=== PATIENT | female | born 1940 | race Caucasian/White ===

== ENCOUNTER 2019-09-21 10:10 | Inpatient (IN) | payer OTHER ==
[2019-09-21] MEDS ORDERED: SODIUM CHLORIDE 500 ML IV STA (12:05)
[2019-09-21 12:13] LABS: BASO % 0.3 % (0-2.0); HEMATOCRIT 24.4 % (32.4-45.2); LYMPH % 12.2 % (8-40); MCH 34.5 pg (25.7-33.7); MEAN CELL VOLUME 104.5 fl (80-96); MEAN PLT VOLUME 7.5 fl (7.5-11.1); MONO % 7.3 % (3.8-10.2); NEUT % 78.2 % (42.8-82.8); PLATELET COUNT 300 K/MM3 (134-434); RBC 2.34 M/mm3 (3.60-5.2); RDW 16.7 % (11.6-15.6); WHITE BLOOD COUNT 9.8 K/mm3 (4.0-10.0)
[2019-09-21 12:21] LABS: INR 1.05 (0.83-1.09); PROTHROMBIN TIME (PATIENT) 12.4 SEC (9.7-13.0)
[2019-09-21 12:45] LABS: ALBUMIN 2.7 g/dl (3.4-5.0); BILIRUBIN,TOTAL 0.2 mg/dL (0.2-1); CALCIUM 8.9 mg/dL (8.5-10.1); CREATININE 2.2 mg/dL (0.55-1.3); POTASSIUM 3.8 mmol/L (3.5-5.1); TOT PROT 5.6 g/dl (6.4-8.2)
[2019-09-21] MEDS ORDERED: PIPERACILLIN/TAZOB 2.25 GM 2.25 GM in DEXTROSE 5%-WATER - 50 ML IVPB ONE (15:18)
--- NOTE | 2019-09-21 15:26 | PDOC ---
Documentation entered by Marcy Ndiaye SCRIBE, acting as scribe for Jarad Richey MD. Jarad Richey MD: This documentation has been prepared by the Senthil culver Sammi, SCRIBE, under my direction and personally reviewed by me in its entirety. I confirm that the documentation accurately reflects all work, treatment, procedures, and medical decision making performed by me. History of Present Illness - General Chief Complaint: Weakness Stated Complaint: WEAKNESS Time Seen by Provider: 09/21/19 10:34 - History of Present Illness Initial Comments: 09/21/19 11:07 The patient is a 78 year old female with hx/o ckd, anemia, htn, who presents to the emergency department for evaluation of 2 days of increased weakness, LLQ pain, sharp, intermitent, waxing and waining in severity, with mucoid stool. The patient is a poor historian. 09/21/19 15:19 Past History - Past Medical History Allergies/Adverse Reactions: Allergies Allergy/AdvReac Type Severity Reaction Status Date / Time No Known Allergies Allergy Verified 09/21/19 13:04 Home Medications: Ambulatory Orders Allopurinol [Zyloprim -] 100 mg PO DAILY 09/21/19 Aspirin [ASA -] 81 mg PO DAILY 09/21/19 Divalproex [Depakote -] 250 mg PO BID 09/21/19 Divalproex [Depakote -] 500 mg PO HS 09/21/19 Furosemide [Lasix] 20 mg PO DAILY 09/21/19 Levothyroxine [Synthroid -] 50 mcg PO DAILY 09/21/19 Quinapril HCl 10 mg PO HS 09/21/19 Repaglinide 2 mg PO TID 09/21/19 Rosuvastatin [Crestor -] 10 mg PO DAILY 09/21/19 Anemia: Yes COPD: No GI Disorders: Yes (diverticulosis) Disorders: Yes (urinary incontinence) Seizures: Yes Thyroid Disease: Yes (hypothyroid) - Immunization History Immunization Up to Date: Yes - Psycho Social/Smoking Cessation Hx Smoking History: Unknown if ever smoked Have you smoked in the past 12 months: No Information on smoking cessation initiated: No Hx Alcohol Use: No Drug/Substance Use Hx: No Review of Systems - Review of Systems Comments:: 09/21/19 11:09 CONSTITUTIONAL: +increased weakness. No fever, no chills. EYES: No visual changes ENT: No ear pain, no sore throat CARDIOVASCULAR: No chest pain, no palpitations RESPIRATORY: No cough, no SOB GI: +LLQ pain, +mucous in her stool. no nausea, no vomiting, no constipation, no diarrhea GENITOURINARY: No dysuria, no frequency, no hematuria MUSKULOSKELETAL: No backpain, no joint pain, no myalgias SKIN: No rash NEURO: No headache *Physical Exam - Vital Signs Last Vital Signs Temp Pulse Resp BP Pulse Ox 98.0 F 82 16 102/70 99 09/21/19 10:40 09/21/19 10:40 09/21/19 10:40 09/21/19 10:40 09/21/19 10:40 - Physical Exam Comments: 09/21/19 14:46 CONSTITUTIONAL: +pale appearing. in no apparent distress ENMT: External appears normal; normal oropharynx NECK: Supple; non-tender; no cervical lymphadenopathy CARD: Normal S1, S2; no murmurs, rubs, or gallops RESP: Normal chest excursion with respiration; breath sounds clear and equal bilaterally; no wheezes, rhonchi, or rales ABD: Soft, non-distended; non-tender; no palpable organomegaly, no palpable hernias EXT: Normal ROM in all four extremities; non-tender to palpation; distal pulses intact SKIN: Warm, dry, no rash NEURO: No focal neurological deficiencies. ED Treatment Course - LABORATORY CBC & Chemistry Diagram: 09/21/19 12:04 09/21/19 12:04 - ADDITIONAL ORDERS Additional order review: Laboratory Results 09/21/19 09/21/19 09/21/19 12:04 12:04 12:04 PT with INR 12.40 INR 1.05 Sodium 138 Potassium 3.8 Chloride 105 Carbon Dioxide 24 Anion Gap 9 BUN 56.0 H Creatinine 2.2 H Est GFR (CKD-EPI)AfAm 24.43 Est GFR (CKD-EPI)NonAf 21.08 Random Glucose 159 H Calcium 8.9 Total Bilirubin 0.2 AST 14 L ALT 11 L Alkaline Phosphatase 46 Total Protein 5.6 L Albumin 2.7 L Lipase Blood Type Cancelled Antibody Screen Cancelled 09/21/19 12:04 PT with INR INR Sodium Potassium Chloride Carbon Dioxide Anion Gap BUN Creatinine Est GFR (CKD-EPI)AfAm Est GFR (CKD-EPI)NonAf Random Glucose Calcium Total Bilirubin AST ALT Alkaline Phosphatase Total Protein Albumin Lipase 53 L Blood Type Antibody Screen 09/21/19 12:04 RBC 2.34 L MCV 104.5 H MCHC 33.0 RDW 16.7 H MPV 7.5 Neutrophils % 78.2 Lymphocytes % 12.2 Monocytes % 7.3 Eosinophils % 2.0 Basophils % 0.3 - RADIOLOGY Radiology Studies Ordered: Category Date Time Status ABDOMEN & PELVIS CT W/O CONTR [CT] Stat CT Scan 09/21/19 12:05 Completed - Medications Given in the ED: ED Medications Discontinued Medications Generic Name Dose Route Start Last Admin Trade Name Freq PRN Reason Stop Dose Admin Sodium Chloride 500 mls @ 500 mls/hr 09/21/19 12:05 09/21/19 12:11 Normal Saline - IV 09/21/19 13:04 500 mls/hr ASDIR STA Administration Medical Decision Making - Medical Decision Making 09/21/19 15:24 Patient is a 78-year-old female with history of CKD, hypertension, anemia who presents with intermittent left-sided abdominal pain, waxing and waning mental status associated with episodes of pain and mucoid stools. In the ER, patient is awake and alert, nontoxic-appearing, refusing Berry catheter and uncooperative with physical exam. Abdominal evaluation reveals mild to minimal left-sided abdominal tenderness on deep palpation only without guarding or rebound. CBC reveals moderate anemia with hematocrit of 24. Patient's family members report that on July [id number] patient's hematocrit was 30.3. CT of abdomen pelvis reveals findings consistent with mild diverticulitis without evidence of perforation. Will treat with IV Zosyn. Will admit. As per family members, patient has refused colonoscopy on numerous occasions. At this point, there is no indication for packed RBC transfusion. Will obtain type and screen. Discharge - Discharge Information Problems reviewed: Yes Clinical Impression/Diagnosis: Acute diverticulitis Anemia Qualifiers: Anemia type: unspecified type Qualified Code(s): D64.9 - Anemia, unspecified CKD (chronic kidney disease) Qualifiers: Chronic kidney disease stage: stage 4 (severe) Qualified Code(s): N18.4 - Chronic kidney disease, stage 4 (severe) - Admission Yes - Follow up/Referral Referrals: ON STAFF,NOT [Primary Care Provider] - - Patient Discharge Instructions - Post Discharge Activity
[2019-09-21] MEDS ORDERED: PIPERACILLIN/TAZOB 2.25 GM 2.25 GM/50 ML BAG IVPB ONE (15:36)
--- NOTE | 2019-09-21 18:40 | HP ---
Admitting History and Physical - Primary Care Physician PCP: Deborah Cespedes - Admission History of Present Illness: 78 year old female with hx/o ckd, anemia, htn, who presents to the emergency department for evaluation of 2 days of increased weakness, LLQ pain, sharp, intermitent, waxing and waining in severity, with mucoid stool. The patient is a poor historian. - Past Medical History Cardiovascular: Yes: HTN Renal/: Yes: Renal Failure - Smoking History Smoking history: Unknown if ever smoked Have you smoked in the past 12 months: No - Alcohol/Substance Use Hx Alcohol Use: No Home Medications - Allergies Allergies/Adverse Reactions: Allergies Allergy/AdvReac Type Severity Reaction Status Date / Time No Known Allergies Allergy Verified 09/21/19 13:04 - Home Medications Home Medications: Ambulatory Orders Allopurinol [Zyloprim -] 100 mg PO DAILY 09/21/19 Aspirin [ASA -] 81 mg PO DAILY 09/21/19 Divalproex [Depakote -] 250 mg PO BID 09/21/19 Divalproex [Depakote -] 500 mg PO HS 09/21/19 Furosemide [Lasix] 20 mg PO DAILY 09/21/19 Levothyroxine [Synthroid -] 50 mcg PO DAILY 09/21/19 Quinapril HCl 10 mg PO HS 09/21/19 Repaglinide 2 mg PO TID 09/21/19 Rosuvastatin [Crestor -] 10 mg PO DAILY 09/21/19 Physical Examination Vital Signs: Vital Signs Temperature 98.1 F 09/21/19 18:00 Pulse Rate 76 09/21/19 18:00 Respiratory Rate 16 09/21/19 18:00 Blood Pressure 112/44 L 09/21/19 18:00 O2 Sat by Pulse Oximetry (%) 100 09/21/19 18:00 Constitutional: Yes: No Distress HENT: Yes: Atraumatic Neck: Yes: Supple Cardiovascular: Yes: Regular Rate and Rhythm Respiratory: Yes: CTA Bilaterally Gastrointestinal: Yes: Normal Bowel Sounds Extremities: Yes: WNL Neurological: Yes: Alert, Oriented Labs: CBC, BMP 09/21/19 12:04 09/21/19 12:04 Problem List - Problems (1) Acute diverticulitis Assessment/Plan: npo , ivf iv protonix Code(s): K57.92 - DVTRCLI OF INTEST, PART UNSP, W/O PERF OR ABSCESS W/O BLEED (2) Anemia Assessment/Plan: fu labs Code(s): D64.9 - ANEMIA, UNSPECIFIED Qualifiers: Anemia type: unspecified type Qualified Code(s): D64.9 - Anemia, unspecified (3) CKD (chronic kidney disease) Code(s): N18.9 - CHRONIC KIDNEY DISEASE, UNSPECIFIED Qualifiers: Chronic kidney disease stage: stage 4 (severe) Qualified Code(s): N18.4 - Chronic kidney disease, stage 4 (severe) Assessment/Plan Laboratory Tests 09/21/19 09/21/19 09/21/19 12:04 12:04 12:04 WBC 9.8 RBC 2.34 L Hgb 8.0 L Hct 24.4 L MCV 104.5 H MCH 34.5 H MCHC 33.0 RDW 16.7 H Plt Count 300 MPV 7.5 Absolute Neuts (auto) 7.6 Neutrophils % 78.2 Lymphocytes % 12.2 Monocytes % 7.3 Eosinophils % 2.0 Basophils % 0.3 Nucleated RBC % 0 PT with INR INR Sodium 138 Potassium 3.8 Chloride 105 Carbon Dioxide 24 Anion Gap 9 BUN 56.0 H Creatinine 2.2 H Est GFR (CKD-EPI)AfAm 24.43 Est GFR (CKD-EPI)NonAf 21.08 Random Glucose 159 H Calcium 8.9 Total Bilirubin 0.2 AST 14 L ALT 11 L Alkaline Phosphatase 46 Total Protein 5.6 L Albumin 2.7 L Lipase 53 L Blood Type Antibody Screen 09/21/19 09/21/19 09/21/19 12:04 12:04 15:45 WBC RBC Hgb Hct MCV MCH MCHC RDW Plt Count MPV Absolute Neuts (auto) Neutrophils % Lymphocytes % Monocytes % Eosinophils % Basophils % Nucleated RBC % PT with INR 12.40 INR 1.05 Sodium Potassium Chloride Carbon Dioxide Anion Gap BUN Creatinine Est GFR (CKD-EPI)AfAm Est GFR (CKD-EPI)NonAf Random Glucose Calcium Total Bilirubin AST ALT Alkaline Phosphatase Total Protein Albumin Lipase Blood Type Cancelled A NEGATIVE Antibody Screen Cancelled Negative Active Medications Generic Name Dose Route Start Last Admin Trade Name Freq PRN Reason Stop Dose Admin Acetaminophen 650 mg 09/26/19 08:31 09/26/19 08:48 Tylenol - PO 650 mg Q6H PRN Administration HEADACHE Al Hydroxide/Mg Hydroxide 30 ml 09/24/19 19:06 09/24/19 21:40 Mylanta Oral Suspension - PO 30 ml Q6H PRN Administration DYSPEPSIA Divalproex Sodium 250 mg 09/21/19 22:00 09/26/19 09:25 Depakote - PO 250 mg BID KENJI Administration Heparin Sodium (Porcine) 5,000 unit 09/21/19 22:00 09/26/19 09:25 Heparin - SQ 5,000 unit BID KENJI Administration Sodium Chloride 1,000 mls @ 75 mls/hr 09/21/19 18:45 09/26/19 17:57 Normal Saline - IV Not Given ASDIR KENJI Piperacillin Sod/Tazobactam 50 mls @ 100 mls/hr 09/22/19 11:15 09/26/19 17:57 Sod 2.25 gm/ Dextrose IVPB 100 mls/hr Q8H-IV KENJI Administration Protocol Levothyroxine Sodium 50 mcg 09/22/19 07:00 09/26/19 06:27 Synthroid - PO 50 mcg DAILY@0700 KENJI Administration
[2019-09-21] MEDS ORDERED: MORPHINE SULFATE 2 MG/ML VIAL IVPUSH PRN (18:43)
[2019-09-21] MEDS: SODIUM CHLORIDE 1,000 ML IV SCH (22:35)
[2019-09-21] MEDS ORDERED: INSULIN SLIDING SCALE (NOVOLOG) 1 VIAL SQ ONE (22:49)
[2019-09-21] MEDS: DIVALPROEX SODIUM 250 MG TABLET E.C. PO SCH (23:15)
[2019-09-21] MEDS: HEPARIN NA (PORCINE) 5,000 UNITS/ML 1ML VIAL SQ SCH (23:16)
[2019-09-22] MEDS ORDERED: PT OWN MED DRAWER 7, Y5N ONE ×2 (02:46→10:26)
[2019-09-22] MEDS: LEVOTHYROXINE NA 50 MCG TABLET (FP) PO SCH (06:35)
[2019-09-22 09:09] LABS: PH,URINE 5.5 (5.0-8.0); URINE APPEARANCE CLEAR; URINE BILIRUBIN NEGATIVE (NEGATIVE); URINE COLOR YELLOW; URINE GLUCOSE (UA) NEGATIVE (NEGATIVE); URINE KETONE NEGATIVE (NEGATIVE); URINE LEUK ESTERASE NEGATIVE (NEGATIVE); URINE NITRITE NEGATIVE (NEGATIVE); URINE PROTEIN NEGATIVE (NEGATIVE); URINE UROBILINOGEN 0.2 mg/dL (0.2-1.0)
[2019-09-22] MEDS: DIVALPROEX SODIUM 250 MG TABLET E.C. PO SCH ×2 (10:34→22:23)
[2019-09-22] MEDS: HEPARIN NA (PORCINE) 5,000 UNITS/ML 1ML VIAL SQ SCH ×2 (10:38→22:23)
--- NOTE | 2019-09-22 11:27 | CON.ID ---
Consult Consult Specialty:: infectious diseases Referred by:: Reason for Consultation:: abd pain,diverticulitis - History of Present Illness Chief Complaint: left lower quadrant abd pain History of Present Illness: 78 year old female with hx/o ckd, anemia, htn, who is admitted for 2 days of increased weakness, LLQ pain, sharp, intermitent, waxing and waining in severity , with mucoid stool. according to the patient she was [facility] and that time she had had a severe attack of the sme kind of pain and it was close to being perforated she was treated with abx and discharged mentions that was around april,but she does not know specifics after that she had been doing well till now. currently patient feels better,was given abx - History Source History Provided By: Patient Limitations to Obtaining History: Poor Historian - Past Medical History Cardio/Vascular: Yes: HTN Renal/: Yes: Renal Failure ...: No - Alcohol/Substance Use Hx Alcohol Use: No - Smoking History Smoking history: Unknown if ever smoked Have you smoked in the past 12 months: No Home Medications - Allergies Allergies/Adverse Reactions: Allergies Allergy/AdvReac Type Severity Reaction Status Date / Time No Known Allergies Allergy Verified 09/21/19 13:04 - Home Medications Home Medications: Ambulatory Orders Allopurinol [Zyloprim -] 100 mg PO DAILY 09/21/19 Aspirin [ASA -] 81 mg PO DAILY 09/21/19 Divalproex [Depakote -] 250 mg PO BID 09/21/19 Divalproex [Depakote -] 500 mg PO HS 09/21/19 Furosemide [Lasix] 20 mg PO DAILY 09/21/19 Levothyroxine [Synthroid -] 50 mcg PO DAILY 09/21/19 Quinapril HCl 10 mg PO HS 09/21/19 Repaglinide 2 mg PO TID 09/21/19 Rosuvastatin [Crestor -] 10 mg PO DAILY 09/21/19 Review of Systems - Review of Systems Constitutional: reports: No Symptoms Eyes: reports: No Symptoms HENT: reports: No Symptoms Neck: reports: No Symptoms Cardiovascular: reports: No Symptoms Respiratory: reports: No Symptoms Gastrointestinal: reports: Abdominal Pain Genitourinary: reports: No Symptoms Musculoskeletal: reports: No Symptoms Integumentary: reports: No Symptoms Neurological: reports: No Symptoms Endocrine: reports: No Symptoms Hematology/Lymphatic: reports: No Symptoms Psychiatric: reports: No Symptoms Physical Exam Vital Signs: Vital Signs Temperature 98.2 F 09/22/19 06:00 Pulse Rate 73 09/22/19 06:00 Respiratory Rate 18 09/22/19 06:00 Blood Pressure 99/56 L 09/22/19 06:00 O2 Sat by Pulse Oximetry (%) 99 09/21/19 21:00 Constitutional: Yes: Well Nourished, Calm, Mild Distress Eyes: Yes: Conjunctiva Clear HENT: Yes: Atraumatic, Normocephalic Neck: Yes: Supple, Trachea Midline Cardiovascular: Yes: Regular Rate and Rhythm Respiratory: Yes: Regular, CTA Bilaterally Gastrointestinal: Yes: Soft, Hypoactive Bowel Sounds, Tenderness (left lower quadrant) Musculoskeletal: Yes: WNL Extremities: Yes: WNL Neurological: Yes: Alert, Oriented Psychiatric: Yes: Alert, Oriented Labs: CBC, BMP 09/21/19 12:04 09/21/19 12:04 Imaging - Results Chest X-ray: Report Reviewed, Image Reviewed Cat Scan: Report Reviewed, Image Reviewed Assessment/Plan patient with multiple medical problems coming with attack of diverticulitis will continue zosyn on the patient close watch will see how patient does tomorrow rest as per the team
[2019-09-22] MEDS ORDERED: PIPERACILLIN/TAZOBACTAM 2.25 GM VIAL IVPB ONE ×2 (12:09→16:57)
[2019-09-22] MEDS ORDERED: DEXTROSE 5%-WATER - 50 ML IVPB ONE ×2 (12:10→16:58)
[2019-09-22] MEDS: PIPERACILLIN/TAZOB 2.25 GM 2.25 GM in DEXTROSE 5%-WATER - 50 ML IVPB SCH ×2 (12:16→17:40)
[2019-09-22] MEDS: SODIUM CHLORIDE 1,000 ML IV SCH (12:16)
--- NOTE | 2019-09-22 15:56 | CON.GI ---
Consult Consult Specialty:: GI Referred by:: Hospitalist Service Reason for Consultation:: Abdominal pain - History of Present Illness Chief Complaint: Abdominal pain History of Present Illness: 78F [address] [facility] ER for evaluation of abdominal pain. The patient is a poor historian and quite forgetful. She denies nausea, vomiting, change in bowel habits. CT scan revealed changes c/w sigmoid diverticulitis. She describes a simiar episode in 05/18 when she was at "[facility]". She does not recall ever having had a colonoscopy. There is no family history of colorectal cancer or other GI malignancy. Noted to have a macrocytic anemia. Denies known history of liver disease. - History Source History Provided By: Patient, Medical Record Limitations to Obtaining History: Poor Historian - Past Medical History Cardio/Vascular: Yes: HTN Renal/: Yes: Renal Failure ...: No Endocrine: Yes: Diabetes Mellitus (DM II) - Past Surgical History Past Surgical History: Yes: Hysterectomy (RACHELE/BSO) - Alcohol/Substance Use Hx Alcohol Use: No History of Substance Use: reports: None - Smoking History Smoking history: Never smoked Have you smoked in the past 12 months: No - Social History ADL: Family Assistance Place of : [facility] History of Recent Travel: No Home Medications - Allergies Allergies/Adverse Reactions: Allergies Allergy/AdvReac Type Severity Reaction Status Date / Time No Known Allergies Allergy Verified 09/21/19 13:04 - Home Medications Home Medications: Ambulatory Orders Allopurinol [Zyloprim -] 100 mg PO DAILY 09/21/19 Aspirin [ASA -] 81 mg PO DAILY 09/21/19 Divalproex [Depakote -] 250 mg PO BID 09/21/19 Divalproex [Depakote -] 500 mg PO HS 09/21/19 Furosemide [Lasix] 20 mg PO DAILY 09/21/19 Levothyroxine [Synthroid -] 50 mcg PO DAILY 09/21/19 Quinapril HCl 10 mg PO HS 09/21/19 Repaglinide 2 mg PO TID 09/21/19 Rosuvastatin [Crestor -] 10 mg PO DAILY 09/21/19 Review of Systems - Review of Systems Constitutional: denies: Chills Cardiovascular: reports: Edema. denies: Chest Pain Respiratory: denies: Cough Gastrointestinal: reports: Abdominal Pain. denies: Diarrhea, Melena, Rectal Bleeding Physical Exam-GI Vital Signs: Vital Signs Temperature 97.9 F 09/22/19 10:00 Pulse Rate 72 09/22/19 10:00 Respiratory Rate 18 09/22/19 10:00 Blood Pressure 104/56 L 09/22/19 10:00 O2 Sat by Pulse Oximetry (%) 95 09/22/19 09:00 Constitutional: Yes: Calm Eyes: No: Sclera Icterus Cardiovascular: Yes: Regular Rate and Rhythm Respiratory: Yes: Diminished (at bases bilaterally with poor insp. effort) Gastrointestinal Inspection: Yes: Scars (+ midline vertical pelvic surgical scar ) ...Auscultate: Yes: Normoactive Bowel Sounds ...Palpate: Yes: Soft, Tenderness (TTP LLQ) ...Percussion: No: Tympanitic Edema: LLE: 1+, RLE: 1+ Neurological: Yes: Alert Labs: CBC, BMP 09/21/19 12:04 09/21/19 12:04 INR, PTT INR 1.05 (0.83-1.09) 09/21/19 12:04 Problem List - Problems (1) Acute diverticulitis Assessment/Plan: By description of the patient, recurrent episode from 05/18 Advise: NPO IV hydration management per PMD IV Abx per ID AM Labs When optimized clinically, outpatient evaluation for follow-up colonoscopy in 4- 6 weeks Code(s): K57.92 - DVTRCLI OF INTEST, PART UNSP, W/O PERF OR ABSCESS W/O BLEED (2) Anemia Assessment/Plan: Macrocytic anemia: Work-up per PMD Consider heme evaluation Code(s): D64.9 - ANEMIA, UNSPECIFIED Qualifiers: Anemia type: unspecified type Qualified Code(s): D64.9 - Anemia, unspecified
--- NOTE | 2019-09-22 18:10 | PN ---
Progress Note, Physician - Current Medication List Current Medications: Active Medications Divalproex Sodium (Depakote -) 250 mg PO BID [facility] Last Admin: 09/22/19 10:34 Dose: 250 mg Heparin Sodium (Porcine) (Heparin -) 5,000 unit SQ BID [facility] Last Admin: 09/22/19 10:38 Dose: 5,000 unit Sodium Chloride (Normal Saline -) 1,000 mls @ 75 mls/hr IV ASDIR [facility] Last Admin: 09/22/19 12:16 Dose: 75 mls/hr Piperacillin Sod/Tazobactam (Sod 2.25 gm/ Dextrose) 50 mls @ 100 mls/hr IVPB Q8H-IV KENJI; Protocol Last Admin: 09/22/19 17:40 Dose: 100 mls/hr Levothyroxine Sodium (Synthroid -) 50 mcg PO DAILY@0700 [facility] Last Admin: 09/22/19 06:35 Dose: 50 mcg Morphine Sulfate (Morphine Sulfate) 2 mg IVPUSH Q4H PRN PRN Reason: PAIN LEVEL 4 - 6 - Objective Vital Signs: Vital Signs Temperature 98.5 F 09/22/19 15:00 Pulse Rate 70 09/22/19 15:00 Respiratory Rate 18 09/22/19 15:00 Blood Pressure 105/53 L 09/22/19 15:00 O2 Sat by Pulse Oximetry (%) 95 09/22/19 09:00 Constitutional: Yes: No Distress HENT: Yes: Atraumatic Neck: Yes: Supple Cardiovascular: Yes: Regular Rate and Rhythm Respiratory: Yes: CTA Bilaterally Gastrointestinal: Yes: Normal Bowel Sounds Extremities: Yes: WNL Labs: CBC, BMP 09/21/19 12:04 09/21/19 12:04 INR, PTT INR 1.05 (0.83-1.09) 09/21/19 12:04 Problem List - Problems (1) Acute diverticulitis Assessment/Plan: clear liquid diet now Code(s): K57.92 - DVTRCLI OF INTEST, PART UNSP, W/O PERF OR ABSCESS W/O BLEED (2) Anemia Assessment/Plan: fu labs Code(s): D64.9 - ANEMIA, UNSPECIFIED Qualifiers: Anemia type: unspecified type Qualified Code(s): D64.9 - Anemia, unspecified (3) CKD (chronic kidney disease) Code(s): N18.9 - CHRONIC KIDNEY DISEASE, UNSPECIFIED Qualifiers: Chronic kidney disease stage: stage 4 (severe) Qualified Code(s): N18.4 - Chronic kidney disease, stage 4 (severe)
[2019-09-23] MEDS ORDERED: DEXTROSE 5%-WATER - 50 ML IVPB ONE ×3 (02:58→16:41)
[2019-09-23] MEDS ORDERED: PIPERACILLIN/TAZOBACTAM 2.25 GM VIAL IVPB ONE ×3 (02:58→16:41)
[2019-09-23] MEDS: PIPERACILLIN/TAZOB 2.25 GM 2.25 GM in DEXTROSE 5%-WATER - 50 ML IVPB SCH ×3 (03:00→17:45)
[2019-09-23] MEDS: SODIUM CHLORIDE 1,000 ML IV SCH ×2 (03:18→21:41)
[2019-09-23] MEDS ORDERED: DEXTROSE 50%-WATER - 25 GM/50 ML VIAL IVPUSH ONE (06:06)
[2019-09-23] MEDS ORDERED: DEXTROSE 50%-WATER 25 GM/50 ML DISP.SYRIN ONE (06:16)
[2019-09-23] MEDS: LEVOTHYROXINE NA 50 MCG TABLET (FP) PO SCH (06:18)
[2019-09-23 08:38] LABS: BASO % 0.7 % (0-2.0); EOS % 5.5 % (0-4.5); HEMATOCRIT 23.9 % (32.4-45.2); HEMOGLOBIN 7.8 GM/dL (10.7-15.3); LYMPH % 32.9 % (8-40); MCH 34.7 pg (25.7-33.7); MCHC 32.7 g/dl (32.0-36.0); MEAN CELL VOLUME 106.1 fl (80-96); MEAN PLT VOLUME 7.7 fl (7.5-11.1); MONO % 6.6 % (3.8-10.2); NEUT % 54.3 % (42.8-82.8); PLATELET COUNT 298 K/MM3 (134-434); RBC 2.25 M/mm3 (3.60-5.2); RDW 17.2 % (11.6-15.6); WHITE BLOOD COUNT 4.5 K/mm3 (4.0-10.0)
[2019-09-23 09:23] LABS: BLOOD UREA NITROGEN 27.2 mg/dL (7-18); CALCIUM 8.2 mg/dL (8.5-10.1); CREATININE 1.8 mg/dL (0.55-1.3); POTASSIUM 3.7 mmol/L (3.5-5.1)
[2019-09-23] MEDS ORDERED: PT OWN MED DRAWER 7, Y5N ONE ×2 (09:23→21:27)
[2019-09-23] MEDS: DIVALPROEX SODIUM 250 MG TABLET E.C. PO SCH ×2 (09:32→21:36)
[2019-09-23] MEDS: HEPARIN NA (PORCINE) 5,000 UNITS/ML 1ML VIAL SQ SCH ×2 (09:34→21:36)
[2019-09-23 10:52] LABS: ANISOCYTOSIS 2+; MACROCYTOSIS 1+; PLATELET ESTIMATE NORMAL; TEAR DROP CELLS 1+
--- NOTE | 2019-09-23 11:20 | PN ---
Progress Note, Physician - Current Medication List Current Medications: Active Medications Divalproex Sodium (Depakote -) 250 mg PO BID [facility] Last Admin: 09/23/19 09:32 Dose: 250 mg Heparin Sodium (Porcine) (Heparin -) 5,000 unit SQ BID [facility] Last Admin: 09/23/19 09:34 Dose: 5,000 unit Sodium Chloride (Normal Saline -) 1,000 mls @ 75 mls/hr IV ASDIR [facility] Last Admin: 09/23/19 03:18 Dose: 75 mls/hr Piperacillin Sod/Tazobactam (Sod 2.25 gm/ Dextrose) 50 mls @ 100 mls/hr IVPB Q8H-IV KENJI; Protocol Last Admin: 09/23/19 09:18 Dose: 100 mls/hr Levothyroxine Sodium (Synthroid -) 50 mcg PO DAILY@0700 [facility] Last Admin: 09/23/19 06:18 Dose: 50 mcg Morphine Sulfate (Morphine Sulfate) 2 mg IVPUSH Q4H PRN PRN Reason: PAIN LEVEL 4 - 6 - Objective Vital Signs: Vital Signs Temperature 97.8 F 09/23/19 06:00 Pulse Rate 67 09/23/19 06:00 Respiratory Rate 18 09/23/19 06:00 Blood Pressure 109/60 09/23/19 06:00 O2 Sat by Pulse Oximetry (%) 98 09/22/19 21:00 Constitutional: Yes: No Distress HENT: Yes: Atraumatic Neck: Yes: Supple Cardiovascular: Yes: Regular Rate and Rhythm Respiratory: Yes: CTA Bilaterally Gastrointestinal: Yes: Normal Bowel Sounds Extremities: Yes: WNL Edema: No Peripheral Pulses WNL: Yes Neurological: Yes: Alert, Oriented Labs: CBC, BMP 09/23/19 06:50 09/23/19 06:50 INR, PTT INR 1.05 (0.83-1.09) 09/21/19 12:04 Problem List - Problems (1) Acute diverticulitis Assessment/Plan: clear liquid diet now Code(s): K57.92 - DVTRCLI OF INTEST, PART UNSP, W/O PERF OR ABSCESS W/O BLEED (2) Anemia Assessment/Plan: fu labs Code(s): D64.9 - ANEMIA, UNSPECIFIED Qualifiers: Anemia type: unspecified type Qualified Code(s): D64.9 - Anemia, unspecified (3) CKD (chronic kidney disease) Code(s): N18.9 - CHRONIC KIDNEY DISEASE, UNSPECIFIED Qualifiers: Chronic kidney disease stage: stage 4 (severe) Qualified Code(s): N18.4 - Chronic kidney disease, stage 4 (severe)
--- NOTE | 2019-09-23 12:47 | PN ---
Progress Note, Physician History of Present Illness: stable no new issues - Current Medication List Current Medications: Active Medications Divalproex Sodium (Depakote -) 250 mg PO BID [facility] Last Admin: 09/23/19 09:32 Dose: 250 mg Heparin Sodium (Porcine) (Heparin -) 5,000 unit SQ BID [facility] Last Admin: 09/23/19 09:34 Dose: 5,000 unit Sodium Chloride (Normal Saline -) 1,000 mls @ 75 mls/hr IV ASDIR [facility] Last Admin: 09/23/19 03:18 Dose: 75 mls/hr Piperacillin Sod/Tazobactam (Sod 2.25 gm/ Dextrose) 50 mls @ 100 mls/hr IVPB Q8H-IV KENJI; Protocol Last Admin: 09/23/19 09:18 Dose: 100 mls/hr Levothyroxine Sodium (Synthroid -) 50 mcg PO DAILY@0700 [facility] Last Admin: 09/23/19 06:18 Dose: 50 mcg Morphine Sulfate (Morphine Sulfate) 2 mg IVPUSH Q4H PRN PRN Reason: PAIN LEVEL 4 - 6 - Objective Vital Signs: Vital Signs Temperature 97.8 F 09/23/19 06:00 Pulse Rate 67 09/23/19 06:00 Respiratory Rate 18 09/23/19 06:00 Blood Pressure 109/60 09/23/19 06:00 O2 Sat by Pulse Oximetry (%) 98 09/22/19 21:00 Constitutional: Yes: No Distress, Calm Cardiovascular: Yes: S1, S2 Respiratory: Yes: Regular, CTA Bilaterally Gastrointestinal: Yes: Soft, Hypoactive Bowel Sounds Musculoskeletal: Yes: WNL Extremities: Yes: WNL Neurological: Yes: Alert, Oriented Psychiatric: Yes: Alert, Oriented Labs: CBC, BMP 09/23/19 06:50 09/23/19 06:50 INR, PTT INR 1.05 (0.83-1.09) 09/21/19 12:04 Assessment/Plan Problem List - Problems (1) Acute diverticulitis Code(s): K57.92 - DVTRCLI OF INTEST, PART UNSP, W/O PERF OR ABSCESS W/O BLEED (2) Anemia Code(s): D64.9 - ANEMIA, UNSPECIFIED Qualifiers: Anemia type: unspecified type Qualified Code(s): D64.9 - Anemia, unspecified (3) CKD (chronic kidney disease) Code(s): N18.9 - CHRONIC KIDNEY DISEASE, UNSPECIFIED Qualifiers: Chronic kidney disease stage: stage 4 (severe) Qualified Code(s): N18.4 - Chronic kidney disease, stage 4 (severe) 4 abd pain plan continue abx rest as per the team
--- NOTE | 2019-09-23 14:25 | PN.GI ---
GI Progress Note Subjective: No acute events No abdominal pain - Objective Vital Signs: Vital Signs Temperature 97.8 F 09/23/19 06:00 Pulse Rate 72 09/23/19 10:00 Respiratory Rate 18 09/23/19 10:00 Blood Pressure 106/58 L 09/23/19 10:00 O2 Sat by Pulse Oximetry (%) 98 09/23/19 09:00 Constitutional: Calm Cardiovascular: Yes: Regular Rate and Rhythm Respiratory: Yes: Diminished (at bases bilaterally) ...Auscultate: Yes: Normoactive Bowel Sounds ...Palpate: Yes: Soft. No: Hepatomegaly, Splenomegaly, Tenderness ...Percussion: No: Tympanitic Neurological: Yes: Alert Labs: CBC, BMP 09/23/19 06:50 09/23/19 06:50 INR, PTT INR 1.05 (0.83-1.09) 09/21/19 12:04 Laboratory Tests 09/23/19 06:50 C-Reactive Protein 1.7 H Problem List - Problems (1) Acute diverticulitis Assessment/Plan: Much improved abdominal exam. Pain free If continued improvement, Advance diet to low fiber Abx per ID AM labs Advised patient. Outpatient followup to discuss colonoscopy Code(s): K57.92 - DVTRCLI OF INTEST, PART UNSP, W/O PERF OR ABSCESS W/O BLEED (2) Anemia Code(s): D64.9 - ANEMIA, UNSPECIFIED Qualifiers: Anemia type: unspecified type Qualified Code(s): D64.9 - Anemia, unspecified
[2019-09-24] MEDS ORDERED: PIPERACILLIN/TAZOBACTAM 2.25 GM VIAL IVPB ONE ×3 (01:52→17:59)
[2019-09-24] MEDS ORDERED: DEXTROSE 5%-WATER - 50 ML IVPB ONE ×3 (01:52→17:59)
[2019-09-24] MEDS: PIPERACILLIN/TAZOB 2.25 GM 2.25 GM in DEXTROSE 5%-WATER - 50 ML IVPB SCH ×3 (02:05→18:40)
[2019-09-24] MEDS: LEVOTHYROXINE NA 50 MCG TABLET (FP) PO SCH (06:07)
[2019-09-24] MEDS ORDERED: PT OWN MED DRAWER 7, Y5N ONE (10:17)
[2019-09-24] MEDS: HEPARIN NA (PORCINE) 5,000 UNITS/ML 1ML VIAL SQ SCH ×2 (10:31→21:40)
[2019-09-24] MEDS: DIVALPROEX SODIUM 250 MG TABLET E.C. PO SCH ×2 (11:01→21:40)
--- NOTE | 2019-09-24 15:00 | PN ---
Progress Note, Physician History of Present Illness: Pt is doing well. Denies abd pain. Slowly advancing diet. - Current Medication List Current Medications: Active Medications Divalproex Sodium (Depakote -) 250 mg PO BID [facility] Last Admin: 09/24/19 11:01 Dose: 250 mg Heparin Sodium (Porcine) (Heparin -) 5,000 unit SQ BID [facility] Last Admin: 09/24/19 10:31 Dose: 5,000 unit Sodium Chloride (Normal Saline -) 1,000 mls @ 75 mls/hr IV ASDIR [facility] Last Admin: 09/23/19 21:41 Dose: 75 mls/hr Piperacillin Sod/Tazobactam (Sod 2.25 gm/ Dextrose) 50 mls @ 100 mls/hr IVPB Q8H-IV [facility]; Protocol Last Admin: 09/24/19 10:31 Dose: 100 mls/hr Levothyroxine Sodium (Synthroid -) 50 mcg PO DAILY@0700 [facility] Last Admin: 09/24/19 06:07 Dose: 50 mcg Morphine Sulfate (Morphine Sulfate) 2 mg IVPUSH Q4H PRN PRN Reason: PAIN LEVEL 4 - 6 - Objective Vital Signs: Vital Signs Temperature 97.4 F L 09/24/19 14:02 Pulse Rate 66 09/24/19 14:02 Respiratory Rate 18 09/24/19 14:02 Blood Pressure 114/54 L 09/24/19 14:02 O2 Sat by Pulse Oximetry (%) 96 09/23/19 21:00 Constitutional: Yes: No Distress, Calm Cardiovascular: Yes: Regular Rate and Rhythm Respiratory: Yes: Regular Gastrointestinal: Yes: Normal Bowel Sounds, Soft Genitourinary: Yes: WNL Extremities: Yes: WNL Edema: No Peripheral Pulses WNL: Yes Integumentary: Yes: WNL Neurological: Yes: Alert, Oriented Labs: CBC, BMP 09/23/19 06:50 09/23/19 06:50 INR, PTT INR 1.05 (0.83-1.09) 09/21/19 12:04 Microbiology 09/22/19 04:23 Urine - Urine Clean Catch Urine Culture - Final Lactose Fermenting Neg Bacilli - ....Imaging Cat Scan: Report Reviewed Problem List - Problems (1) Acute diverticulitis Code(s): K57.92 - DVTRCLI OF INTEST, PART UNSP, W/O PERF OR ABSCESS W/O BLEED (2) Anemia Code(s): D64.9 - ANEMIA, UNSPECIFIED Qualifiers: Anemia type: unspecified type Qualified Code(s): D64.9 - Anemia, unspecified (3) CKD (chronic kidney disease) Code(s): N18.9 - CHRONIC KIDNEY DISEASE, UNSPECIFIED Qualifiers: Chronic kidney disease stage: stage 4 (severe) Qualified Code(s): N18.4 - Chronic kidney disease, stage 4 (severe) Assessment/Plan Acute diverticulitis CKD Anemia -- pt with less abd pain, remains afebrile -- continue antibiotics -- advance diet as tolerated GI following
[2019-09-24] MEDS ORDERED: MAG HYDROX/AL HYDROX/SIMETH 30 ML UNIT-DOSE CUP PO PRN (19:06)
[2019-09-24] MEDS: SODIUM CHLORIDE 1,000 ML IV SCH (21:44)
--- NOTE | 2019-09-24 21:46 | PN ---
Progress Note (short form) - Note Progress Note: seen and examined in bed chart reviewed had liquid diet this morning well tolerated denies abdominal pain Vital Signs Period Temp Pulse Resp BP Sys/Cooper Pulse Ox Last 24 Hr 97.4 F-98.0 F 66-71 18-20 105-114/54-61 98 sitting up in bed having lunch full liquid neck supple heart S1/S2 reg lungs cler abd soft non tender / no guarding / BS + ext no edema CBC, BMP 09/23/19 06:50 09/23/19 06:50 Microbiology 09/22/19 04:23 Urine - Urine Clean Catch Urine Culture - Final Lactose Fermenting Neg Bacilli Active Medications Al Hydroxide/Mg Hydroxide (Mylanta Oral Suspension -) 30 ml PO Q6H PRN PRN Reason: DYSPEPSIA Last Admin: 09/24/19 21:40 Dose: 30 ml Divalproex Sodium (Depakote -) 250 mg PO BID [facility] Last Admin: 09/24/19 21:40 Dose: 250 mg Heparin Sodium (Porcine) (Heparin -) 5,000 unit SQ BID [facility] Last Admin: 09/24/19 21:40 Dose: 5,000 unit Sodium Chloride (Normal Saline -) 1,000 mls @ 75 mls/hr IV ASDIR [facility] Last Admin: 09/24/19 21:44 Dose: Not Given Piperacillin Sod/Tazobactam (Sod 2.25 gm/ Dextrose) 50 mls @ 100 mls/hr IVPB Q8H-IV [facility]; Protocol Last Admin: 09/24/19 18:40 Dose: 100 mls/hr Levothyroxine Sodium (Synthroid -) 50 mcg PO DAILY@0700 [facility] Last Admin: 09/24/19 06:07 Dose: 50 mcg 78 year old female with hx/o ckd, anemia, htn, who presents to the emergency department for evaluation of 2 days of increased weakness, LLQ pain, sharp, intermitent, waxing and waining in severity, with mucoid stool. The patient is a poor historian. # diverticulitis ABX advance diet as tolerated outpatient GI follow up # Anemia trend H/h # CKD stable # Hypothyroid continue synthroid
[2019-09-25] MEDS ORDERED: PIPERACILLIN/TAZOBACTAM 2.25 GM VIAL IVPB ONE ×3 (01:01→17:50)
[2019-09-25] MEDS ORDERED: DEXTROSE 5%-WATER - 50 ML IVPB ONE ×3 (01:01→17:50)
[2019-09-25] MEDS: SODIUM CHLORIDE 1,000 ML IV SCH ×2 (01:59→18:30)
[2019-09-25] MEDS: PIPERACILLIN/TAZOB 2.25 GM 2.25 GM in DEXTROSE 5%-WATER - 50 ML IVPB SCH ×3 (01:59→18:30)
[2019-09-25] MEDS: LEVOTHYROXINE NA 50 MCG TABLET (FP) PO SCH (06:52)
[2019-09-25 07:53] LABS: BLOOD UREA NITROGEN 17.4 mg/dL (7-18); CALCIUM 8.1 mg/dL (8.5-10.1); CREATININE 1.7 mg/dL (0.55-1.3)
[2019-09-25 08:09] LABS: BASO % 0.6 % (0-2.0); EOS % 3.2 % (0-4.5); HEMATOCRIT 24.6 % (32.4-45.2); HEMOGLOBIN 8.1 GM/dL (10.7-15.3); LYMPH % 25.2 % (8-40); MCH 34.6 pg (25.7-33.7); MCHC 32.9 g/dl (32.0-36.0); MEAN PLT VOLUME 7.4 fl (7.5-11.1); MONO % 6.5 % (3.8-10.2); NEUT % 64.5 % (42.8-82.8); PLATELET COUNT 307 K/MM3 (134-434); RBC 2.34 M/mm3 (3.60-5.2); RDW 16.8 % (11.6-15.6); WHITE BLOOD COUNT 6.5 K/mm3 (4.0-10.0)
[2019-09-25] MEDS ORDERED: PT OWN MED DRAWER 7, Y5N ONE (09:48)
[2019-09-25] MEDS: HEPARIN NA (PORCINE) 5,000 UNITS/ML 1ML VIAL SQ SCH ×2 (09:48→21:46)
[2019-09-25] MEDS: DIVALPROEX SODIUM 250 MG TABLET E.C. PO SCH ×2 (09:48→21:46)
--- NOTE | 2019-09-25 13:05 | PN ---
Progress Note, Physician History of Present Illness: Pt is alert. Denies abd pain. No new complaints. - Current Medication List Current Medications: Active Medications Al Hydroxide/Mg Hydroxide (Mylanta Oral Suspension -) 30 ml PO Q6H PRN PRN Reason: DYSPEPSIA Last Admin: 09/24/19 21:40 Dose: 30 ml Divalproex Sodium (Depakote -) 250 mg PO BID [facility] Last Admin: 09/25/19 09:48 Dose: 250 mg Heparin Sodium (Porcine) (Heparin -) 5,000 unit SQ BID [facility] Last Admin: 09/25/19 09:48 Dose: 5,000 unit Sodium Chloride (Normal Saline -) 1,000 mls @ 75 mls/hr IV ASDIR [facility] Last Admin: 09/25/19 01:59 Dose: 75 mls/hr Piperacillin Sod/Tazobactam (Sod 2.25 gm/ Dextrose) 50 mls @ 100 mls/hr IVPB Q8H-IV [facility]; Protocol Last Admin: 09/25/19 09:45 Dose: 100 mls/hr Levothyroxine Sodium (Synthroid -) 50 mcg PO DAILY@0700 [facility] Last Admin: 09/25/19 06:52 Dose: 50 mcg - Objective Vital Signs: Vital Signs Temperature 97.9 F 09/25/19 09:45 Pulse Rate 80 09/25/19 09:45 Respiratory Rate 18 09/25/19 09:45 Blood Pressure 102/51 L 09/25/19 09:45 O2 Sat by Pulse Oximetry (%) 94 L 09/25/19 10:00 Constitutional: Yes: No Distress, Calm Cardiovascular: Yes: Regular Rate and Rhythm Respiratory: Yes: Regular Gastrointestinal: Yes: Normal Bowel Sounds, Soft Genitourinary: Yes: WNL Extremities: Yes: WNL Integumentary: Yes: WNL Neurological: Yes: Alert, Oriented Labs: CBC, BMP 09/25/19 06:55 09/25/19 06:55 INR, PTT INR 1.05 (0.83-1.09) 09/21/19 12:04 Laboratory Results - last 24 hr 09/25/19 09/25/19 09/25/19 06:42 06:55 06:55 WBC 6.5 RBC 2.34 L Hgb 8.1 L Hct 24.6 L MCV 105.0 H MCH 34.6 H MCHC 32.9 RDW 16.8 H Plt Count 307 MPV 7.4 L Absolute Neuts (auto) 4.2 Neutrophils % 64.5 Lymphocytes % 25.2 D Monocytes % 6.5 Eosinophils % 3.2 Basophils % 0.6 Nucleated RBC % 0 Sodium 143 Potassium 4.0 Chloride 110 H Carbon Dioxide 26 Anion Gap 7 L BUN 17.4 Creatinine 1.7 H Est GFR (CKD-EPI)AfAm 33.37 Est GFR (CKD-EPI)NonAf 28.79 POC Glucometer 129 Random Glucose 133 H Calcium 8.1 L Problem List - Problems (1) Acute diverticulitis Code(s): K57.92 - DVTRCLI OF INTEST, PART UNSP, W/O PERF OR ABSCESS W/O BLEED (2) Anemia Code(s): D64.9 - ANEMIA, UNSPECIFIED Qualifiers: Anemia type: unspecified type Qualified Code(s): D64.9 - Anemia, unspecified (3) CKD (chronic kidney disease) Code(s): N18.9 - CHRONIC KIDNEY DISEASE, UNSPECIFIED Qualifiers: Chronic kidney disease stage: stage 4 (severe) Qualified Code(s): N18.4 - Chronic kidney disease, stage 4 (severe) Assessment/Plan Acute diverticulitis CKD Anemia -- Pt appears to be clinically improving -- continue antibiotics -- advancing diet, currently tolerating -- GI following
--- NOTE | 2019-09-25 23:21 | PN ---
Progress Note, Physician - Current Medication List Current Medications: Active Medications Al Hydroxide/Mg Hydroxide (Mylanta Oral Suspension -) 30 ml PO Q6H PRN PRN Reason: DYSPEPSIA Last Admin: 09/24/19 21:40 Dose: 30 ml Divalproex Sodium (Depakote -) 250 mg PO BID [facility] Last Admin: 09/25/19 21:46 Dose: 250 mg Heparin Sodium (Porcine) (Heparin -) 5,000 unit SQ BID [facility] Last Admin: 09/25/19 21:46 Dose: 5,000 unit Sodium Chloride (Normal Saline -) 1,000 mls @ 75 mls/hr IV [facility]IR [facility] Last Admin: 09/25/19 18:30 Dose: 75 mls/hr Piperacillin Sod/Tazobactam (Sod 2.25 gm/ Dextrose) 50 mls @ 100 mls/hr IVPB Q8H-IV [facility]; Protocol Last Admin: 09/25/19 18:30 Dose: 100 mls/hr Levothyroxine Sodium (Synthroid -) 50 mcg PO DAILY@0700 [facility] Last Admin: 09/25/19 06:52 Dose: 50 mcg - Objective Vital Signs: Vital Signs Temperature 98.0 F 09/25/19 18:00 Pulse Rate 73 09/25/19 18:00 Respiratory Rate 20 09/25/19 18:00 Blood Pressure 113/57 L 09/25/19 18:00 O2 Sat by Pulse Oximetry (%) 94 L 09/25/19 10:00 Labs: CBC, BMP 09/25/19 06:55 09/25/19 06:55 INR, PTT INR 1.05 (0.83-1.09) 09/21/19 12:04
[2019-09-26] MEDS ORDERED: DEXTROSE 5%-WATER - 50 ML IVPB ONE ×3 (01:08→16:18)
[2019-09-26] MEDS ORDERED: PIPERACILLIN/TAZOBACTAM 2.25 GM VIAL IVPB ONE ×3 (01:08→16:18)
[2019-09-26] MEDS: PIPERACILLIN/TAZOB 2.25 GM 2.25 GM in DEXTROSE 5%-WATER - 50 ML IVPB SCH ×3 (01:36→17:57)
[2019-09-26] MEDS: LEVOTHYROXINE NA 50 MCG TABLET (FP) PO SCH (06:27)
[2019-09-26] MEDS: ACETAMINOPHEN 325 MG TABLET (FP) PO PRN (08:48)
[2019-09-26] MEDS: DIVALPROEX SODIUM 250 MG TABLET E.C. PO SCH ×2 (09:25→21:19)
[2019-09-26] MEDS: SODIUM CHLORIDE 1,000 ML IV SCH ×2 (09:25→17:57)
[2019-09-26] MEDS: HEPARIN NA (PORCINE) 5,000 UNITS/ML 1ML VIAL SQ SCH ×2 (09:25→21:19)
--- NOTE | 2019-09-26 12:19 | PN ---
Progress Note, Physician History of Present Illness: stable no new issues - Current Medication List Current Medications: Active Medications Acetaminophen (Tylenol -) 650 mg PO Q6H PRN PRN Reason: HEADACHE Last Admin: 09/26/19 08:48 Dose: 650 mg Al Hydroxide/Mg Hydroxide (Mylanta Oral Suspension -) 30 ml PO Q6H PRN PRN Reason: DYSPEPSIA Last Admin: 09/24/19 21:40 Dose: 30 ml Divalproex Sodium (Depakote -) 250 mg PO BID [facility] Last Admin: 09/26/19 09:25 Dose: 250 mg Heparin Sodium (Porcine) (Heparin -) 5,000 unit SQ BID [facility] Last Admin: 09/26/19 09:25 Dose: 5,000 unit Sodium Chloride (Normal Saline -) 1,000 mls @ 75 mls/hr IV [facility]IR [facility] Last Admin: 09/26/19 09:25 Dose: 75 mls/hr Piperacillin Sod/Tazobactam (Sod 2.25 gm/ Dextrose) 50 mls @ 100 mls/hr IVPB Q8H-IV [facility]; Protocol Last Admin: 09/26/19 09:26 Dose: 100 mls/hr Levothyroxine Sodium (Synthroid -) 50 mcg PO DAILY@0700 [facility] Last Admin: 09/26/19 06:27 Dose: 50 mcg - Objective Vital Signs: Vital Signs Temperature 97.9 F 09/26/19 09:30 Pulse Rate 66 09/26/19 09:30 Respiratory Rate 18 09/26/19 09:30 Blood Pressure 104/58 L 09/26/19 09:30 O2 Sat by Pulse Oximetry (%) 94 L 09/26/19 09:00 Constitutional: Yes: No Distress, Calm Cardiovascular: Yes: S1, S2 Respiratory: Yes: Regular, CTA Bilaterally Gastrointestinal: Yes: Normal Bowel Sounds, Soft Musculoskeletal: Yes: WNL Extremities: Yes: WNL Neurological: Yes: Alert, Oriented Psychiatric: Yes: Alert, Oriented Labs: CBC, BMP 09/25/19 06:55 09/25/19 06:55 INR, PTT INR 1.05 (0.83-1.09) 09/21/19 12:04 Assessment/Plan Problem List - Problems (1) Acute diverticulitis Code(s): K57.92 - DVTRCLI OF INTEST, PART UNSP, W/O PERF OR ABSCESS W/O BLEED (2) Anemia Code(s): D64.9 - ANEMIA, UNSPECIFIED Qualifiers: Anemia type: unspecified type Qualified Code(s): D64.9 - Anemia, unspecified (3) CKD (chronic kidney disease) Code(s): N18.9 - CHRONIC KIDNEY DISEASE, UNSPECIFIED Qualifiers: Chronic kidney disease stage: stage 4 (severe) Qualified Code(s): N18.4 - Chronic kidney disease, stage 4 (severe) 4 abd pain plan continue abx rest as per the team
--- NOTE | 2019-09-26 16:32 | PN.GI ---
GI Progress Note Subjective: Sitting up in chair Denies abdominal pain States feeling better - Objective Vital Signs: Vital Signs Temperature 98.3 F 09/26/19 14:15 Pulse Rate 75 09/26/19 14:15 Respiratory Rate 18 09/26/19 14:15 Blood Pressure 113/43 L 09/26/19 14:15 O2 Sat by Pulse Oximetry (%) 94 L 09/26/19 09:00 Constitutional: Calm Eyes: No: Sclera Icterus Cardiovascular: Yes: Regular Rate and Rhythm Respiratory: Yes: CTA Bilaterally Gastrointestinal Inspection: No: Distention ...Auscultate: Yes: Normoactive Bowel Sounds ...Palpate: Yes: Soft. No: Tenderness Neurological: Yes: Alert Labs: CBC, BMP 09/25/19 06:55 09/25/19 06:55 INR, PTT INR 1.05 (0.83-1.09) 09/21/19 12:04 Problem List - Problems (1) Acute diverticulitis Assessment/Plan: Clinically improved Abx per ID Advance diet Outpatient evaluation to discuss colonoscopy Evaluation of macrocytic anemia per PMD. Consider hematology evaluation Code(s): K57.92 - DVTRCLI OF INTEST, PART UNSP, W/O PERF OR ABSCESS W/O BLEED (2) Anemia Code(s): D64.9 - ANEMIA, UNSPECIFIED Qualifiers: Anemia type: unspecified type Qualified Code(s): D64.9 - Anemia, unspecified
--- NOTE | 2019-09-26 18:56 | PN ---
Progress Note, Physician - Current Medication List Current Medications: Active Medications Acetaminophen (Tylenol -) 650 mg PO Q6H PRN PRN Reason: HEADACHE Last Admin: 09/26/19 08:48 Dose: 650 mg Al Hydroxide/Mg Hydroxide (Mylanta Oral Suspension -) 30 ml PO Q6H PRN PRN Reason: DYSPEPSIA Last Admin: 09/24/19 21:40 Dose: 30 ml Divalproex Sodium (Depakote -) 250 mg PO BID [facility] Last Admin: 09/26/19 09:25 Dose: 250 mg Heparin Sodium (Porcine) (Heparin -) 5,000 unit SQ BID [facility] Last Admin: 09/26/19 09:25 Dose: 5,000 unit Sodium Chloride (Normal Saline -) 1,000 mls @ 75 mls/hr IV ASDIR [facility] Last Admin: 09/26/19 17:57 Dose: Not Given Piperacillin Sod/Tazobactam (Sod 2.25 gm/ Dextrose) 50 mls @ 100 mls/hr IVPB Q8H-IV [facility]; Protocol Last Admin: 09/26/19 17:57 Dose: 100 mls/hr Levothyroxine Sodium (Synthroid -) 50 mcg PO DAILY@0700 [facility] Last Admin: 09/26/19 06:27 Dose: 50 mcg - Objective Vital Signs: Vital Signs Temperature 98.3 F 09/26/19 14:15 Pulse Rate 75 09/26/19 14:15 Respiratory Rate 18 09/26/19 14:15 Blood Pressure 113/43 L 09/26/19 14:15 O2 Sat by Pulse Oximetry (%) 94 L 09/26/19 09:00 Constitutional: Yes: No Distress HENT: Yes: Atraumatic Neck: Yes: Supple Cardiovascular: Yes: Regular Rate and Rhythm Respiratory: Yes: CTA Bilaterally Gastrointestinal: Yes: Normal Bowel Sounds Extremities: Yes: WNL Edema: No Neurological: Yes: Alert, Oriented Labs: CBC, BMP 09/25/19 06:55 09/25/19 06:55 INR, PTT INR 1.05 (0.83-1.09) 09/21/19 12:04 Problem List - Problems (1) Acute diverticulitis Assessment/Plan: advanced diet as tolerated Code(s): K57.92 - DVTRCLI OF INTEST, PART UNSP, W/O PERF OR ABSCESS W/O BLEED (2) Anemia Assessment/Plan: fu labs Code(s): D64.9 - ANEMIA, UNSPECIFIED Qualifiers: Anemia type: unspecified type Qualified Code(s): D64.9 - Anemia, unspecified (3) CKD (chronic kidney disease) Code(s): N18.9 - CHRONIC KIDNEY DISEASE, UNSPECIFIED Qualifiers: Chronic kidney disease stage: stage 4 (severe) Qualified Code(s): N18.4 - Chronic kidney disease, stage 4 (severe)
[2019-09-27] MEDS: SODIUM CHLORIDE 1,000 ML IV SCH (00:41)
[2019-09-27] MEDS ORDERED: PIPERACILLIN/TAZOBACTAM 2.25 GM VIAL IVPB ONE ×3 (02:34→17:12)
[2019-09-27] MEDS ORDERED: DEXTROSE 5%-WATER - 50 ML IVPB ONE ×3 (02:34→17:13)
[2019-09-27] MEDS: PIPERACILLIN/TAZOB 2.25 GM 2.25 GM in DEXTROSE 5%-WATER - 50 ML IVPB SCH ×3 (05:07→18:46)
[2019-09-27] MEDS: LEVOTHYROXINE NA 50 MCG TABLET (FP) PO SCH (06:19)
[2019-09-27] MEDS ORDERED: PT OWN MED DRAWER 7, Y5N ONE (09:01)
[2019-09-27] MEDS: HEPARIN NA (PORCINE) 5,000 UNITS/ML 1ML VIAL SQ SCH ×2 (09:20→22:42)
[2019-09-27] MEDS: DIVALPROEX SODIUM 250 MG TABLET E.C. PO SCH ×2 (09:20→22:42)
[2019-09-27 11:58] VITALS: BMI 29.9
--- NOTE | 2019-09-27 12:30 | PN ---
Progress Note, Physician History of Present Illness: patient feeling better abd pain much better started on diet - Current Medication List Current Medications: Active Medications Acetaminophen (Tylenol -) 650 mg PO Q6H PRN PRN Reason: HEADACHE Last Admin: 09/26/19 08:48 Dose: 650 mg Al Hydroxide/Mg Hydroxide (Mylanta Oral Suspension -) 30 ml PO Q6H PRN PRN Reason: DYSPEPSIA Last Admin: 09/24/19 21:40 Dose: 30 ml Divalproex Sodium (Depakote -) 250 mg PO BID [facility] Last Admin: 09/27/19 09:20 Dose: 250 mg Heparin Sodium (Porcine) (Heparin -) 5,000 unit SQ BID [facility] Last Admin: 09/27/19 09:20 Dose: 5,000 unit Sodium Chloride (Normal Saline -) 1,000 mls @ 75 mls/hr IV ASDIR [facility] Last Admin: 09/27/19 00:41 Dose: 75 mls/hr Piperacillin Sod/Tazobactam (Sod 2.25 gm/ Dextrose) 50 mls @ 100 mls/hr IVPB Q8H-IV [facility]; Protocol Last Admin: 09/27/19 09:20 Dose: 100 mls/hr Levothyroxine Sodium (Synthroid -) 50 mcg PO DAILY@0700 [facility] Last Admin: 09/27/19 06:19 Dose: 50 mcg - Objective Vital Signs: Vital Signs Temperature 98.1 F 09/27/19 09:15 Pulse Rate 78 09/27/19 09:15 Respiratory Rate 18 09/27/19 09:15 Blood Pressure 106/56 L 09/27/19 09:15 O2 Sat by Pulse Oximetry (%) 95 09/27/19 10:00 Constitutional: Yes: No Distress, Calm Cardiovascular: Yes: S1, S2 Respiratory: Yes: Regular, CTA Bilaterally Gastrointestinal: Yes: Normal Bowel Sounds, Soft Musculoskeletal: Yes: WNL Extremities: Yes: WNL Neurological: Yes: Alert, Oriented Psychiatric: Yes: Alert, Oriented Labs: CBC, BMP 09/25/19 06:55 09/25/19 06:55 INR, PTT INR 1.05 (0.83-1.09) 09/21/19 12:04 Assessment/Plan Problem List - Problems (1) Acute diverticulitis Code(s): K57.92 - DVTRCLI OF INTEST, PART UNSP, W/O PERF OR ABSCESS W/O BLEED (2) Anemia Code(s): D64.9 - ANEMIA, UNSPECIFIED Qualifiers: Anemia type: unspecified type Qualified Code(s): D64.9 - Anemia, unspecified (3) CKD (chronic kidney disease) Code(s): N18.9 - CHRONIC KIDNEY DISEASE, UNSPECIFIED Qualifiers: Chronic kidney disease stage: stage 4 (severe) Qualified Code(s): N18.4 - Chronic kidney disease, stage 4 (severe) 4 abd pain plan continue abx rest as per the team if patient tolerates oral diet will switch to oral tomorrow rest as per the team
--- NOTE | 2019-09-27 17:46 | PN ---
Progress Note, Physician History of Present Illness: tolerating diet - Current Medication List Current Medications: Active Medications Acetaminophen (Tylenol -) 650 mg PO Q6H PRN PRN Reason: HEADACHE Last Admin: 09/26/19 08:48 Dose: 650 mg Al Hydroxide/Mg Hydroxide (Mylanta Oral Suspension -) 30 ml PO Q6H PRN PRN Reason: DYSPEPSIA Last Admin: 09/24/19 21:40 Dose: 30 ml Divalproex Sodium (Depakote -) 250 mg PO BID [facility] Last Admin: 09/27/19 09:20 Dose: 250 mg Heparin Sodium (Porcine) (Heparin -) 5,000 unit SQ BID [facility] Last Admin: 09/27/19 09:20 Dose: 5,000 unit Sodium Chloride (Normal Saline -) 1,000 mls @ 75 mls/hr IV ASDIR [facility] Last Admin: 09/27/19 00:41 Dose: 75 mls/hr Piperacillin Sod/Tazobactam (Sod 2.25 gm/ Dextrose) 50 mls @ 100 mls/hr IVPB Q8H-IV [facility]; Protocol Last Admin: 09/27/19 09:20 Dose: 100 mls/hr Levothyroxine Sodium (Synthroid -) 50 mcg PO DAILY@0700 [facility] Last Admin: 09/27/19 06:19 Dose: 50 mcg - Objective Vital Signs: Vital Signs Temperature 98.6 F 09/27/19 14:00 Pulse Rate 80 09/27/19 14:00 Respiratory Rate 18 09/27/19 14:00 Blood Pressure 112/66 09/27/19 14:00 O2 Sat by Pulse Oximetry (%) 95 09/27/19 10:00 Constitutional: Yes: No Distress HENT: Yes: Atraumatic Neck: Yes: Supple Cardiovascular: Yes: Regular Rate and Rhythm Respiratory: Yes: CTA Bilaterally Gastrointestinal: Yes: Normal Bowel Sounds Extremities: Yes: WNL Edema: No Peripheral Pulses WNL: Yes Neurological: Yes: Alert, Oriented Labs: CBC, BMP 09/25/19 06:55 09/25/19 06:55 INR, PTT INR 1.05 (0.83-1.09) 09/21/19 12:04 Problem List - Problems (1) Acute diverticulitis Assessment/Plan: tolerating po on abx Code(s): K57.92 - DVTRCLI OF INTEST, PART UNSP, W/O PERF OR ABSCESS W/O BLEED (2) Anemia Assessment/Plan: fu labs Code(s): D64.9 - ANEMIA, UNSPECIFIED Qualifiers: Anemia type: unspecified type Qualified Code(s): D64.9 - Anemia, unspecified (3) CKD (chronic kidney disease) Code(s): N18.9 - CHRONIC KIDNEY DISEASE, UNSPECIFIED Qualifiers: Chronic kidney disease stage: stage 4 (severe) Qualified Code(s): N18.4 - Chronic kidney disease, stage 4 (severe)
--- NOTE | 2019-09-27 17:49 | DS ---
Physical Examination Vital Signs: Vital Signs Temperature 98.6 F 09/27/19 14:00 Pulse Rate 80 09/27/19 14:00 Respiratory Rate 18 09/27/19 14:00 Blood Pressure 112/66 09/27/19 14:00 O2 Sat by Pulse Oximetry (%) 95 09/27/19 10:00 Labs: CBC, BMP 09/25/19 06:55 09/25/19 06:55 Discharge Summary Problems reviewed: Yes Reason For Visit: ACUTE DIVERTICULITIS OF INTESTINE Current Active Problems Acute diverticulitis (Acute) Anemia (Acute) CKD (chronic kidney disease) (Acute) - Instructions Referrals: ON STAFF,NOT [Primary Care Provider] - - Home Medications Comprehensive Discharge Medication List: Ambulatory Orders Allopurinol [Zyloprim -] 100 mg PO DAILY 09/21/19 Aspirin [ASA -] 81 mg PO DAILY 09/21/19 Divalproex [Depakote -] 250 mg PO BID 09/21/19 Divalproex [Depakote -] 500 mg PO HS 09/21/19 Furosemide [Lasix] 20 mg PO DAILY 09/21/19 Levothyroxine [Synthroid -] 50 mcg PO DAILY 09/21/19 Quinapril HCl 10 mg PO HS 09/21/19 Repaglinide 2 mg PO TID 09/21/19 Rosuvastatin [Crestor -] 10 mg PO DAILY 09/21/19 Amoxicillin/Potassium Clav [Augmentin 875-125 Tablet] 1 each PO BID #10 tablet 09/27/19
[2019-09-27] MEDS ORDERED: SIMETHICONE 40 MG/0.6 ML BOTTLE PO PRN (18:03)
[2019-09-28] MEDS ORDERED: PIPERACILLIN/TAZOBACTAM 2.25 GM VIAL IVPB ONE ×3 (02:24→16:49)
[2019-09-28] MEDS ORDERED: DEXTROSE 5%-WATER - 50 ML IVPB ONE ×3 (02:25→16:49)
[2019-09-28] MEDS: PIPERACILLIN/TAZOB 2.25 GM 2.25 GM in DEXTROSE 5%-WATER - 50 ML IVPB SCH ×3 (03:22→18:55)
[2019-09-28] MEDS: LEVOTHYROXINE NA 50 MCG TABLET (FP) PO SCH (06:43)
[2019-09-28] MEDS: HEPARIN NA (PORCINE) 5,000 UNITS/ML 1ML VIAL SQ SCH ×2 (10:04→22:53)
[2019-09-28] MEDS: DIVALPROEX SODIUM 250 MG TABLET E.C. PO SCH ×2 (10:37→22:53)
--- NOTE | 2019-09-28 13:26 | PN ---
Progress Note, Physician History of Present Illness: stable no new issues - Current Medication List Current Medications: Active Medications Acetaminophen (Tylenol -) 650 mg PO Q6H PRN PRN Reason: HEADACHE Last Admin: 09/26/19 08:48 Dose: 650 mg Al Hydroxide/Mg Hydroxide (Mylanta Oral Suspension -) 30 ml PO Q6H PRN PRN Reason: DYSPEPSIA Last Admin: 09/24/19 21:40 Dose: 30 ml Divalproex Sodium (Depakote -) 250 mg PO BID [facility] Last Admin: 09/28/19 10:37 Dose: 250 mg Heparin Sodium (Porcine) (Heparin -) 5,000 unit SQ BID [facility] Last Admin: 09/28/19 10:04 Dose: 5,000 unit Piperacillin Sod/Tazobactam (Sod 2.25 gm/ Dextrose) 50 mls @ 100 mls/hr IVPB Q8H-IV [facility]; Protocol Last Admin: 09/28/19 10:03 Dose: 100 mls/hr Levothyroxine Sodium (Synthroid -) 50 mcg PO DAILY@0700 [facility] Last Admin: 09/28/19 06:43 Dose: 50 mcg Simethicone (Mylicon Liquid -) 40 mg PO QID PRN PRN Reason: DYSPEPSIA Last Admin: 09/28/19 00:07 Dose: 40 mg - Objective Vital Signs: Vital Signs Temperature 98.3 F 09/28/19 10:00 Pulse Rate 85 09/28/19 10:00 Respiratory Rate 18 09/28/19 10:00 Blood Pressure 103/76 09/28/19 10:00 O2 Sat by Pulse Oximetry (%) 98 09/28/19 08:20 Constitutional: Yes: No Distress, Calm Cardiovascular: Yes: Regular Rate and Rhythm Respiratory: Yes: Regular, CTA Bilaterally Gastrointestinal: Yes: Normal Bowel Sounds, Soft Musculoskeletal: Yes: WNL Extremities: Yes: WNL Neurological: Yes: Alert, Oriented Psychiatric: Yes: Alert, Oriented Labs: CBC, BMP 09/25/19 06:55 09/25/19 06:55 INR, PTT INR 1.05 (0.83-1.09) 09/21/19 12:04 Assessment/Plan Problem List - Problems (1) Acute diverticulitis Code(s): K57.92 - DVTRCLI OF INTEST, PART UNSP, W/O PERF OR ABSCESS W/O BLEED (2) Anemia Code(s): D64.9 - ANEMIA, UNSPECIFIED Qualifiers: Anemia type: unspecified type Qualified Code(s): D64.9 - Anemia, unspecified (3) CKD (chronic kidney disease) Code(s): N18.9 - CHRONIC KIDNEY DISEASE, UNSPECIFIED Qualifiers: Chronic kidney disease stage: stage 4 (severe) Qualified Code(s): N18.4 - Chronic kidney disease, stage 4 (severe) 4 abd pain plan oral levaquin 750 mg daily for 5 days with flagyl 500 mg po tid for 5 days
--- NOTE | 2019-09-28 14:43 | DS ---
Physical Examination Vital Signs: Vital Signs Temperature 98.9 F 09/28/19 14:00 Pulse Rate 78 09/28/19 14:00 Respiratory Rate 20 09/28/19 14:00 Blood Pressure 111/68 09/28/19 14:00 O2 Sat by Pulse Oximetry (%) 98 09/28/19 08:20 Labs: CBC, BMP 09/25/19 06:55 09/25/19 06:55 Discharge Summary Problems reviewed: Yes Reason For Visit: ACUTE DIVERTICULITIS OF INTESTINE Current Active Problems Acute diverticulitis (Acute) Anemia (Acute) CKD (chronic kidney disease) (Acute) - Instructions Referrals: ON STAFF,NOT [Primary Care Provider] - - Home Medications Comprehensive Discharge Medication List: Ambulatory Orders Allopurinol [Zyloprim -] 100 mg PO DAILY 09/21/19 Aspirin [ASA -] 81 mg PO DAILY 09/21/19 Divalproex [Depakote -] 250 mg PO BID 09/21/19 Divalproex [Depakote -] 500 mg PO HS 09/21/19 Furosemide [Lasix] 20 mg PO DAILY 09/21/19 Levothyroxine [Synthroid -] 50 mcg PO DAILY 09/21/19 Quinapril HCl 10 mg PO HS 09/21/19 Repaglinide 2 mg PO TID 09/21/19 Rosuvastatin [Crestor -] 10 mg PO DAILY 09/21/19 Metronidazole 500 mg PO TID #15 tablet 09/28/19 levoFLOXacin [Levaquin] 750 mg PO DAILY #5 tab 09/28/19
--- NOTE | 2019-09-28 18:22 | PN ---
Progress Note, Physician History of Present Illness: tolerating diet - Current Medication List Current Medications: Active Medications Acetaminophen (Tylenol -) 650 mg PO Q6H PRN PRN Reason: HEADACHE Last Admin: 09/26/19 08:48 Dose: 650 mg Al Hydroxide/Mg Hydroxide (Mylanta Oral Suspension -) 30 ml PO Q6H PRN PRN Reason: DYSPEPSIA Last Admin: 09/24/19 21:40 Dose: 30 ml Divalproex Sodium (Depakote -) 250 mg PO BID [facility] Last Admin: 09/28/19 10:37 Dose: 250 mg Heparin Sodium (Porcine) (Heparin -) 5,000 unit SQ BID [facility] Last Admin: 09/28/19 10:04 Dose: 5,000 unit Piperacillin Sod/Tazobactam (Sod 2.25 gm/ Dextrose) 50 mls @ 100 mls/hr IVPB Q8H-IV KENJI; Protocol Last Admin: 09/28/19 10:03 Dose: 100 mls/hr Levothyroxine Sodium (Synthroid -) 50 mcg PO DAILY@0700 [facility] Last Admin: 09/28/19 06:43 Dose: 50 mcg Simethicone (Mylicon Liquid -) 40 mg PO QID PRN PRN Reason: DYSPEPSIA Last Admin: 09/28/19 00:07 Dose: 40 mg - Objective Vital Signs: Vital Signs Temperature 98.9 F 09/28/19 14:00 Pulse Rate 78 09/28/19 14:00 Respiratory Rate 20 09/28/19 14:00 Blood Pressure 111/68 09/28/19 14:00 O2 Sat by Pulse Oximetry (%) 98 09/28/19 08:20 Constitutional: Yes: No Distress HENT: Yes: Atraumatic Neck: Yes: Supple Cardiovascular: Yes: Regular Rate and Rhythm Respiratory: Yes: CTA Bilaterally Gastrointestinal: Yes: Normal Bowel Sounds Extremities: Yes: WNL Edema: No Peripheral Pulses WNL: Yes Neurological: Yes: Alert Labs: CBC, BMP 09/25/19 06:55 09/25/19 06:55 INR, PTT INR 1.05 (0.83-1.09) 09/21/19 12:04 Problem List - Problems (1) Acute diverticulitis Assessment/Plan: tolerating po on abx Code(s): K57.92 - DVTRCLI OF INTEST, PART UNSP, W/O PERF OR ABSCESS W/O BLEED (2) Anemia Assessment/Plan: h/h stable Code(s): D64.9 - ANEMIA, UNSPECIFIED Qualifiers: Anemia type: unspecified type Qualified Code(s): D64.9 - Anemia, unspecified (3) CKD (chronic kidney disease) Code(s): N18.9 - CHRONIC KIDNEY DISEASE, UNSPECIFIED Qualifiers: Chronic kidney disease stage: stage 4 (severe) Qualified Code(s): N18.4 - Chronic kidney disease, stage 4 (severe)
[2019-09-28] MEDS ORDERED: PT OWN MED DRAWER 7, Y5N ONE (22:12)
[2019-09-29] MEDS ORDERED: PIPERACILLIN/TAZOBACTAM 2.25 GM VIAL IVPB ONE ×2 (02:38→10:18)
[2019-09-29] MEDS ORDERED: DEXTROSE 5%-WATER - 50 ML IVPB ONE ×2 (02:39→10:18)
[2019-09-29] MEDS: PIPERACILLIN/TAZOB 2.25 GM 2.25 GM in DEXTROSE 5%-WATER - 50 ML IVPB SCH ×2 (02:43→10:40)
[2019-09-29] MEDS: ACETAMINOPHEN 325 MG TABLET (FP) PO PRN (06:01)
[2019-09-29] MEDS: LEVOTHYROXINE NA 50 MCG TABLET (FP) PO SCH (06:01)
[2019-09-29] MEDS ORDERED: PT OWN MED DRAWER 7, Y5N ONE (10:17)
[2019-09-29] MEDS: HEPARIN NA (PORCINE) 5,000 UNITS/ML 1ML VIAL SQ SCH (10:41)
[2019-09-29] MEDS: DIVALPROEX SODIUM 250 MG TABLET E.C. PO SCH (10:41)
--- NOTE | 2019-09-29 10:42 | PN ---
Progress Note, Physician History of Present Illness: stable no new issues abd pain resolved - Current Medication List Current Medications: Active Medications Acetaminophen (Tylenol -) 650 mg PO Q6H PRN PRN Reason: HEADACHE Last Admin: 09/29/19 06:01 Dose: 650 mg Al Hydroxide/Mg Hydroxide (Mylanta Oral Suspension -) 30 ml PO Q6H PRN PRN Reason: DYSPEPSIA Last Admin: 09/24/19 21:40 Dose: 30 ml Divalproex Sodium (Depakote -) 250 mg PO BID [facility] Last Admin: 09/28/19 22:53 Dose: 250 mg Heparin Sodium (Porcine) (Heparin -) 5,000 unit SQ BID [facility] Last Admin: 09/28/19 22:53 Dose: 5,000 unit Piperacillin Sod/Tazobactam (Sod 2.25 gm/ Dextrose) 50 mls @ 100 mls/hr IVPB Q8H-IV KENJI; Protocol Last Admin: 09/29/19 02:43 Dose: 100 mls/hr Levothyroxine Sodium (Synthroid -) 50 mcg PO DAILY@0700 [facility] Last Admin: 09/29/19 06:01 Dose: 50 mcg Simethicone (Mylicon Liquid -) 40 mg PO QID PRN PRN Reason: DYSPEPSIA Last Admin: 09/28/19 00:07 Dose: 40 mg - Objective Vital Signs: Vital Signs Temperature 98 F 09/29/19 06:31 Pulse Rate 76 09/29/19 06:31 Respiratory Rate 18 09/29/19 06:31 Blood Pressure 146/66 09/29/19 06:31 O2 Sat by Pulse Oximetry (%) 98 09/28/19 21:00 Constitutional: Yes: No Distress, Calm Cardiovascular: Yes: S1, S2 Respiratory: Yes: Regular, CTA Bilaterally Gastrointestinal: Yes: Normal Bowel Sounds, Soft Musculoskeletal: Yes: WNL Extremities: Yes: WNL Neurological: Yes: Alert, Oriented Psychiatric: Yes: Alert, Oriented Labs: CBC, BMP 09/25/19 06:55 09/25/19 06:55 INR, PTT INR 1.05 (0.83-1.09) 09/21/19 12:04 Assessment/Plan Problem List - Problems (1) Acute diverticulitis Code(s): K57.92 - DVTRCLI OF INTEST, PART UNSP, W/O PERF OR ABSCESS W/O BLEED (2) Anemia Code(s): D64.9 - ANEMIA, UNSPECIFIED Qualifiers: Anemia type: unspecified type Qualified Code(s): D64.9 - Anemia, unspecified (3) CKD (chronic kidney disease) Code(s): N18.9 - CHRONIC KIDNEY DISEASE, UNSPECIFIED Qualifiers: Chronic kidney disease stage: stage 4 (severe) Qualified Code(s): N18.4 - Chronic kidney disease, stage 4 (severe) 4 abd pain plan oral levaquin 750 mg daily for 5 days with flagyl 500 mg po tid for 5 days
--- NOTE | 2019-09-29 15:44 | DS ---
Physical Examination Vital Signs: Vital Signs Temperature 98 F 09/29/19 06:31 Pulse Rate 82 09/29/19 09:00 Respiratory Rate 18 09/29/19 09:00 Blood Pressure 131/60 09/29/19 09:00 O2 Sat by Pulse Oximetry (%) 98 09/29/19 09:00 Constitutional: Yes: No Distress Neck: Yes: Supple Cardiovascular: Yes: Regular Rate and Rhythm Respiratory: Yes: CTA Bilaterally Gastrointestinal: Yes: Normal Bowel Sounds Extremities: Yes: WNL Neurological: Yes: Alert Labs: CBC, BMP 09/25/19 06:55 09/25/19 06:55 Discharge Summary Problems reviewed: Yes Reason For Visit: ACUTE DIVERTICULITIS OF INTESTINE Current Active Problems Acute diverticulitis (Acute) Anemia (Acute) CKD (chronic kidney disease) (Acute) - Instructions Referrals: ON STAFF,NOT [Primary Care Provider] - Disposition: HOME HEALTH CARE - Home Medications Comprehensive Discharge Medication List: Ambulatory Orders Allopurinol [Zyloprim -] 100 mg PO DAILY 09/21/19 Aspirin [ASA -] 81 mg PO DAILY 09/21/19 Divalproex [Depakote -] 250 mg PO BID 09/21/19 Divalproex [Depakote -] 500 mg PO HS 09/21/19 Furosemide [Lasix] 20 mg PO DAILY 09/21/19 Levothyroxine [Synthroid -] 50 mcg PO DAILY 09/21/19 Quinapril HCl 10 mg PO HS 09/21/19 Repaglinide 2 mg PO TID 09/21/19 Rosuvastatin [Crestor -] 10 mg PO DAILY 09/21/19 Metronidazole 500 mg PO TID #15 tablet 09/28/19 levoFLOXacin [Levaquin] 750 mg PO DAILY #5 tab 09/28/19 dc home with family
[2019-09-29 16:03] VITALS: BP 129/63; PULSE 91; TEMP 99.8
== END 2019-09-29 16:30 | disposition home health service (06) | DRG 392 ==
LOC: JER 10:10 → JERBED 15:37 → J5S 18:26
PROVIDERS: ADMIT Internal Medicine; ATTEND Internal Medicine
DX: K57.32 Diverticulitis of large intestine without perforation or abscess without bleeding (principal); N18.4 Chronic kidney disease, stage 4 (severe); I12.9 Hypertensive chronic kidney disease with stage 1 through stage 4 chronic kidney disease, or unspecified chronic kidney disease; D64.9 Anemia, unspecified; E03.9 Hypothyroidism, unspecified; R10.32 Left lower quadrant pain
CPT/HCPCS: 36415; 74176-TC; 80048; 80053; 81003; 82962; 83690; 85025; 85610; 86140; 86850; 86900; 86901; 87086; 97116-GP; 97162-GP; 99284-25; J1644; J7030; Q9967

== ENCOUNTER 2022-04-22 23:32 | Inpatient (IN) | payer OTHER ==
[2022-04-23] MEDS ORDERED: ONDANSETRON 4 MG/2 ML VIAL IVPB ONE (00:09)
[2022-04-23] MEDS ORDERED: ONDANSETRON 4 MG/2 ML VIAL ONE (00:13)
[2022-04-23] MEDS ORDERED: SODIUM CHLORIDE 0.9% 500 ML INFUS.BAG IV STA (00:20)
[2022-04-23] MEDS ORDERED: ONDANSETRON *ODT* 4 MG TABLET ONE (00:49)
[2022-04-23 01:21] LABS: CHLORIDE 102 mmol/L (98-107)
[2022-04-23 01:24] LABS: ALBUMIN 3.8 g/dl (3.4-5.0); BLOOD UREA NITROGEN 67.2 mg/dL (7-18); CO2 21 mmol/L (21-32); GLUCOSE,RANDOM 230 mg/dL (74-106); LIPASE 207 U/L (73-393)
[2022-04-23 01:27] LABS: CREATININE 2.2 mg/dL (0.55-1.3); SGOT/AST 25 U/L (15-37); SGPT/ALT 19 U/L (13-61)
[2022-04-23 01:28] LABS: TOT PROT 7.6 g/dl (6.4-8.2)
[2022-04-23 01:29] LABS: BILIRUBIN,TOTAL 0.2 mg/dL (0.2-1)
[2022-04-23 01:30] LABS: ALK PHOS 14 U/L (45-117)
[2022-04-23 01:32] LABS: HEMATOCRIT 30.4 % (32.4-45.2); HEMOGLOBIN 10.1 GM/dL (10.7-15.3); MCH 32.6 pg (25.7-33.7); MCHC 33.1 g/dl (32.0-36.0); MEAN CELL VOLUME 98.6 fl (80-96); MEAN PLT VOLUME 8.8 fl (7.5-11.1); PLATELET COUNT 195 10^3/uL (134-434); RBC 3.08 M/mm3 (3.60-5.2); RDW 16.7 % (11.6-15.6); WHITE BLOOD COUNT 3.6 K/mm3 (4.0-10.0)
[2022-04-23 02:27] LABS: ANION GAP -9 MMOL/L (8-16); SODIUM 114 mmol/L (136-145)
[2022-04-23 02:37] LABS: CALCIUM < 8.5 mg/dL (8.5-10.1)
[2022-04-23 03:55] LABS: ANISOCYTOSIS 1+; MACROCYTOSIS 0
[2022-04-23 03:55] LABS: CALCIUM 9.3 mg/dL (8.5-10.1)
[2022-04-23 03:56] LABS: BLOOD UREA NITROGEN 74.4 mg/dL (7-18)
[2022-04-23 03:59] LABS: CREATININE 2.5 mg/dL (0.55-1.3)
[2022-04-23] MEDS ORDERED: ONDANSETRON 4 MG/2 ML VIAL IVPUSH PRN (04:48)
[2022-04-23] MEDS ORDERED: CEFTRIAXONE 2 GM-D5W BAG 2 GM/50 ML BAG IVPB SCH (04:52)
[2022-04-23] MEDS ORDERED: SODIUM CHLORIDE 500 ML IV STA (05:16)
[2022-04-23] MEDS: SODIUM CHLORIDE 1,000 ML IV SCH ×2 (05:17→16:14)
[2022-04-23] MEDS ORDERED: CEFTRIAXONE 2 GM/100 ML BAG IVPB ONE ×2 (05:18→11:35)
[2022-04-23] MEDS ORDERED: HEPARIN NA (PORCINE) 5,000 UNITS/ML 1ML VIAL ONE (06:17)
[2022-04-23] MEDS: HEPARIN NA (PORCINE) 5,000 UNITS/ML 1ML VIAL SQ SCH ×3 (06:21→21:15)
[2022-04-23 07:47] LABS: BASO % 0.1 % (0-2.0); EOS % 0.7 % (0-4.5); HEMATOCRIT 29.8 % (32.4-45.2); LYMPH % 3.5 % (8-40); MCH 32.8 pg (25.7-33.7); MCHC 33.6 g/dl (32.0-36.0); MEAN CELL VOLUME 97.8 fl (80-96); MEAN PLT VOLUME 8.2 fl (7.5-11.1); MONO % 5.8 % (3.8-10.2); NEUT % 89.9 % (42.8-82.8); PLATELET COUNT 230 10^3/uL (134-434); RBC 3.05 M/mm3 (3.60-5.2); RDW 16.5 % (11.6-15.6); WHITE BLOOD COUNT 4.4 K/mm3 (4.0-10.0)
[2022-04-23 08:13] LABS: INR 1.04 (0.83-1.09)
[2022-04-23 08:16] LABS: ACTIVATED PTT 25.7 SECONDS (25.2-36.5); BLOOD UREA NITROGEN 71.6 mg/dL (7-18); CALCIUM 8.7 mg/dL (8.5-10.1); MAGNESIUM 1.7 mg/dL (1.8-2.4)
[2022-04-23 08:19] LABS: CREATININE 2.5 mg/dL (0.55-1.3)
[2022-04-23 08:20] LABS: PHOSPHOROUS 3.2 mg/dL (2.5-4.9)
[2022-04-23] MEDS: INSULIN SLIDING SCALE (NOVOLOG) 1 VIAL SQ SCH ×4 (08:54→21:16)
[2022-04-23] MEDS ORDERED: KCL 10 MEQ IVPB 10 MEQ/100 ML INFUS.BAG IVPB ONE (09:09)
[2022-04-23] MEDS ORDERED: MAGNESIUM 1GM/D5W - 1 GM/100 ML IVPB IVPB ONE (09:09)
[2022-04-23] MEDS: MAGNESIUM SULF 50% (8.12 MEQ/2 ML-1 GM VIAL) IVPB ONE (09:15)
[2022-04-23] MEDS ORDERED: PANTOPRAZOLE 40 MG TABLET PO ONE (09:16)
[2022-04-23] MEDS ORDERED: LEVOTHYROXINE NA 75 MCG TABLET (FP) ONE (09:16)
[2022-04-23] MEDS: LEVOTHYROXINE NA 75 MCG TABLET (FP) PO SCH (09:33)
[2022-04-23] MEDS ORDERED: PATIENT'S OWN MEDICATION (NON-FORMULARY) (Mirabegron [Myrbetriq] 50 MG Tab.Er.24h) PO SCH (10:00)
[2022-04-23] MEDS ORDERED: PANTOPRAZOLE 40 MG TABLET PO SCH (10:00)
[2022-04-23] MEDS: DIVALPROEX SODIUM 250 MG TABLET E.C. PO SCH ×2 (10:54→21:15)
[2022-04-23] MEDS: KCL 10 MEQ IVPB 10 MEQ/100 ML INFUS.BAG IVPB SCH ×3 (10:54→16:13)
[2022-04-23] MEDS: ALLOPURINOL 100 MG TABLET (FP) PO SCH (10:54)
[2022-04-23] MEDS ORDERED: IRON SUCROSE INJECTION 200 MG in SODIUM CHLORIDE 90 ML IVPB ONE (12:04)
[2022-04-23] MEDS: CEFTRIAXONE 2 GM in DEXTROSE 5%-WATER 2 GM/100 ML BAG IVPB SCH (12:15)
[2022-04-23 15:40] VITALS: BMI 32.1
[2022-04-23] MEDS: ROSUVASTATIN CA 10 MG TABLET PO SCH (21:17)
[2022-04-24] MEDS: HEPARIN NA (PORCINE) 5,000 UNITS/ML 1ML VIAL SQ SCH ×3 (05:35→21:25)
[2022-04-24] MEDS: LEVOTHYROXINE NA 75 MCG TABLET (FP) PO SCH (06:02)
[2022-04-24] MEDS: INSULIN SLIDING SCALE (NOVOLOG) 1 VIAL SQ SCH ×4 (06:02→21:31)
[2022-04-24] MEDS: SODIUM CHLORIDE 1,000 ML IV SCH ×2 (06:33→16:11)
[2022-04-24] MEDS: ALLOPURINOL 100 MG TABLET (FP) PO SCH (09:34)
[2022-04-24] MEDS: DIVALPROEX SODIUM 250 MG TABLET E.C. PO SCH ×2 (09:34→21:25)
[2022-04-24 10:04] LABS: EOS % 0.1 % (0-4.5); HEMATOCRIT 26.9 % (32.4-45.2); LYMPH % 6.5 % (8-40); MCH 32.7 pg (25.7-33.7); MCHC 33.4 g/dl (32.0-36.0); MEAN CELL VOLUME 97.9 fl (80-96); MEAN PLT VOLUME 8.6 fl (7.5-11.1); MONO % 4.3 % (3.8-10.2); NEUT % 89.1 % (42.8-82.8); PLATELET COUNT 218 10^3/uL (134-434); RBC 2.75 M/mm3 (3.60-5.2); RDW 16.7 % (11.6-15.6); WHITE BLOOD COUNT 7.5 K/mm3 (4.0-10.0)
[2022-04-24 10:42] LABS: CALCIUM 8.4 mg/dL (8.5-10.1)
[2022-04-24 10:43] LABS: BLOOD UREA NITROGEN 77.4 mg/dL (7-18); MAGNESIUM 2.2 mg/dL (1.8-2.4)
[2022-04-24 10:46] LABS: CREATININE 2.4 mg/dL (0.55-1.3); PHOSPHOROUS 3.5 mg/dL (2.5-4.9)
[2022-04-24] MEDS ORDERED: DEXTROSE 5%-WATER 100 ML IVPB ONE (11:14)
[2022-04-24] MEDS: CEFTRIAXONE 2 GM in DEXTROSE 5%-WATER 2 GM/100 ML BAG IVPB SCH (11:28)
[2022-04-24] MEDS: KCL 10 MEQ IVPB 10 MEQ/100 ML INFUS.BAG IVPB SCH ×3 (16:10→21:24)
[2022-04-24] MEDS: VANCOMYCIN 250 MG/5 ML ORAL SOLUTION PO SCH (18:16)
[2022-04-24] MEDS ORDERED: KCL 10 MEQ IVPB 10 MEQ/100 ML INFUS.BAG IVPB SCH (21:00)
[2022-04-24] MEDS: ROSUVASTATIN CA 10 MG TABLET PO SCH (21:25)
[2022-04-24 22:11] LABS: EPI CELLS 3 /uL (0-25.1); HYALINE CASTS 0 /uL (0-3.1); PH,URINE 5.5 (5.0-8.0); URINE APPEARANCE CLOUDY; URINE BACTERIA 200 /uL (0-1359); URINE BILIRUBIN NEGATIVE (NEGATIVE); URINE COLOR YELLOW; URINE GLUCOSE (UA) NEGATIVE (NEGATIVE); URINE KETONE NEGATIVE (NEGATIVE); URINE LEUK ESTERASE 2+ (NEGATIVE); URINE NITRITE NEGATIVE (NEGATIVE); URINE PROTEIN 1+ (NEGATIVE); URINE UROBILINOGEN 0.2 mg/dL (0.2-1.0); URINE WBC 63 /uL (0-25.8)
[2022-04-24 22:48] LABS: URINE RBC 316 /uL (0-23.9)
[2022-04-25] MEDS: VANCOMYCIN 250 MG/5 ML ORAL SOLUTION PO SCH ×5 (00:21→23:19)
[2022-04-25] MEDS: HEPARIN NA (PORCINE) 5,000 UNITS/ML 1ML VIAL SQ SCH ×3 (05:54→21:31)
[2022-04-25] MEDS: LEVOTHYROXINE NA 75 MCG TABLET (FP) PO SCH (06:10)
[2022-04-25] MEDS: INSULIN SLIDING SCALE (NOVOLOG) 1 VIAL SQ SCH ×4 (06:11→21:37)
[2022-04-25 10:12] LABS: BASO % 0.3 % (0-2.0); EOS % 0.6 % (0-4.5); HEMATOCRIT 26.6 % (32.4-45.2); HEMOGLOBIN 8.7 GM/dL (10.7-15.3); MCH 32.5 pg (25.7-33.7); MCHC 32.8 g/dl (32.0-36.0); MEAN CELL VOLUME 99.1 fl (80-96); MEAN PLT VOLUME 8.7 fl (7.5-11.1); MONO % 3.8 % (3.8-10.2); NEUT % 83.3 % (42.8-82.8); PLATELET COUNT 223 10^3/uL (134-434); RBC 2.68 M/mm3 (3.60-5.2); RDW 16.4 % (11.6-15.6); WHITE BLOOD COUNT 6.8 K/mm3 (4.0-10.0)
[2022-04-25] MEDS ORDERED: DEXTROSE 5%-WATER 100 ML IVPB ONE (10:50)
[2022-04-25 10:53] LABS: CALCIUM 8.6 mg/dL (8.5-10.1)
[2022-04-25] MEDS: CEFTRIAXONE 2 GM in DEXTROSE 5%-WATER 2 GM/100 ML BAG IVPB SCH (10:53)
[2022-04-25] MEDS: ALLOPURINOL 100 MG TABLET (FP) PO SCH (10:53)
[2022-04-25 10:54] LABS: BLOOD UREA NITROGEN 54.7 mg/dL (7-18)
[2022-04-25 10:57] LABS: CREATININE 1.7 mg/dL (0.55-1.3)
[2022-04-25] MEDS: DIVALPROEX SODIUM 250 MG TABLET E.C. PO SCH ×2 (11:24→21:31)
[2022-04-25] MEDS: SODIUM CHLORIDE 1,000 ML IV SCH (12:57)
[2022-04-25] MEDS ORDERED: POTASSIUM CHLORIDE TABS 20 MEQ TABLET.ER (FP) PO ONE (16:06)
[2022-04-25] MEDS: KCL 10 MEQ IVPB 10 MEQ/100 ML INFUS.BAG IVPB SCH ×2 (16:52→18:58)
[2022-04-25] MEDS: POTASSIUM CHLORIDE 10 MEQ in SODIUM CHLORIDE 0.45% 1,000 ML IVPB SCH (18:58)
[2022-04-25] MEDS: ROSUVASTATIN CA 10 MG TABLET PO SCH (21:31)
[2022-04-26] MEDS ORDERED: POTASSIUM CHLORIDE ORAL LIQUID 20 MEQ/15 ML PO ONE (01:01)
[2022-04-26] MEDS: LEVOTHYROXINE NA 75 MCG TABLET (FP) PO SCH (06:06)
[2022-04-26] MEDS: VANCOMYCIN 250 MG/5 ML ORAL SOLUTION PO SCH ×3 (06:06→17:00)
[2022-04-26] MEDS: HEPARIN NA (PORCINE) 5,000 UNITS/ML 1ML VIAL SQ SCH ×3 (06:06→21:24)
[2022-04-26] MEDS: INSULIN SLIDING SCALE (NOVOLOG) 1 VIAL SQ SCH ×4 (06:11→21:24)
[2022-04-26] MEDS: DIVALPROEX SODIUM 250 MG TABLET E.C. PO SCH ×2 (10:03→21:24)
[2022-04-26] MEDS: ALLOPURINOL 100 MG TABLET (FP) PO SCH (10:03)
[2022-04-26] MEDS: LACTOBACILLUS ACIDOPHILUS 1 TABLET PO SCH (10:03)
[2022-04-26] MEDS: QUINAPRIL HCL 20 MG TABLET PO SCH (10:05)
[2022-04-26 10:43] LABS: BASO % 0.4 % (0-2.0); EOS % 1.9 % (0-4.5); HEMATOCRIT 27.2 % (32.4-45.2); HEMOGLOBIN 8.8 GM/dL (10.7-15.3); LYMPH % 15.5 % (8-40); MCHC 32.4 g/dl (32.0-36.0); MEAN CELL VOLUME 98.9 fl (80-96); MONO % 4.9 % (3.8-10.2); NEUT % 77.3 % (42.8-82.8); PLATELET COUNT 217 10^3/uL (134-434); RBC 2.76 M/mm3 (3.60-5.2); RDW 16.8 % (11.6-15.6); WHITE BLOOD COUNT 5.5 K/mm3 (4.0-10.0)
[2022-04-26] MEDS ORDERED: DEXTROSE 5%-WATER 100 ML IVPB ONE (10:45)
[2022-04-26] MEDS: CEFTRIAXONE 2 GM in DEXTROSE 5%-WATER 2 GM/100 ML BAG IVPB SCH (10:46)
[2022-04-26 11:01] LABS: CHLORIDE 116 mmol/L (98-107); SODIUM 145 mmol/L (136-145)
[2022-04-26 11:14] LABS: CALCIUM 8.3 mg/dL (8.5-10.1)
[2022-04-26 11:15] LABS: ANION GAP 7 MMOL/L (8-16); BLOOD UREA NITROGEN 36.4 mg/dL (7-18); CO2 22 mmol/L (21-32); GLUCOSE,RANDOM 231 mg/dL (74-106); MAGNESIUM 1.9 mg/dL (1.8-2.4)
[2022-04-26 11:18] LABS: CREATININE 1.6 mg/dL (0.55-1.3); SGOT/AST 13 U/L (15-37); SGPT/ALT 12 U/L (13-61)
[2022-04-26 11:20] LABS: BILIRUBIN,TOTAL 0.4 mg/dL (0.2-1)
[2022-04-26 11:21] LABS: ALK PHOS 39 U/L (45-117)
[2022-04-26 11:51] LABS: ALBUMIN 2.5 g/dl (3.4-5.0); PHOSPHOROUS 1.1 mg/dL (2.5-4.9); TOT PROT 5.4 g/dl (6.4-8.2)
[2022-04-26] MEDS ORDERED: POTASSIUM PHOSPHATE 15 MM in DEXTROSE 5%-WATER - 250 ML IVPB ONE (13:25)
[2022-04-26] MEDS: NAPH,MB-DB/K PH,MBDB POWDER PACKET PO SCH ×3 (14:26→21:23)
[2022-04-26] MEDS: POTASSIUM CHLORIDE 10 MEQ in SODIUM CHLORIDE 0.45% 1,000 ML IVPB SCH (16:57)
[2022-04-26] MEDS: ROSUVASTATIN CA 10 MG TABLET PO SCH (21:23)
[2022-04-26] MEDS ORDERED: FAMOTIDINE 20 MG TABLET PO ONE (23:31)
[2022-04-27] MEDS: VANCOMYCIN 250 MG/5 ML ORAL SOLUTION PO SCH ×4 (00:54→17:18)
[2022-04-27] MEDS: LEVOTHYROXINE NA 75 MCG TABLET (FP) PO SCH (06:06)
[2022-04-27] MEDS: HEPARIN NA (PORCINE) 5,000 UNITS/ML 1ML VIAL SQ SCH ×3 (06:06→21:01)
[2022-04-27] MEDS: NAPH,MB-DB/K PH,MBDB POWDER PACKET PO SCH (06:06)
[2022-04-27] MEDS: INSULIN SLIDING SCALE (NOVOLOG) 1 VIAL SQ SCH ×4 (06:07→21:00)
[2022-04-27] MEDS ORDERED: DEXTROSE 5%-WATER 100 ML IVPB ONE (08:58)
[2022-04-27] MEDS: LACTOBACILLUS ACIDOPHILUS 1 TABLET PO SCH (09:02)
[2022-04-27] MEDS: ALLOPURINOL 100 MG TABLET (FP) PO SCH (09:02)
[2022-04-27] MEDS: CEFTRIAXONE 2 GM in DEXTROSE 5%-WATER 2 GM/100 ML BAG IVPB SCH (09:02)
[2022-04-27] MEDS: DIVALPROEX SODIUM 250 MG TABLET E.C. PO SCH ×2 (09:02→21:00)
[2022-04-27] MEDS: QUINAPRIL HCL 20 MG TABLET PO SCH (09:02)
[2022-04-27 09:53] LABS: BASO % 0.5 % (0-2.0); EOS % 3.1 % (0-4.5); HEMATOCRIT 25.6 % (32.4-45.2); HEMOGLOBIN 8.6 GM/dL (10.7-15.3); LYMPH % 27.4 % (8-40); MCH 32.5 pg (25.7-33.7); MCHC 33.5 g/dl (32.0-36.0); MEAN PLT VOLUME 7.9 fl (7.5-11.1); MONO % 7.2 % (3.8-10.2); NEUT % 61.8 % (42.8-82.8); PLATELET COUNT 226 10^3/uL (134-434); RBC 2.64 M/mm3 (3.60-5.2); RDW 16.3 % (11.6-15.6); WHITE BLOOD COUNT 4.3 K/mm3 (4.0-10.0)
[2022-04-27 10:11] LABS: CALCIUM 7.8 mg/dL (8.5-10.1)
[2022-04-27 10:12] LABS: ALBUMIN 2.4 g/dl (3.4-5.0); BLOOD UREA NITROGEN 27.5 mg/dL (7-18); MAGNESIUM 1.6 mg/dL (1.8-2.4)
[2022-04-27 10:14] LABS: CREATININE 1.2 mg/dL (0.55-1.3)
[2022-04-27 10:16] LABS: BILIRUBIN,TOTAL 0.5 mg/dL (0.2-1); TOT PROT 4.6 g/dl (6.4-8.2)
[2022-04-27] MEDS ORDERED: SODIUM PHOSPHATE - 0 MM in SODIUM CHLORIDE 250 ML IVPB ONE (11:34)
[2022-04-27] MEDS ORDERED: POTASSIUM CHLORIDE TABS 20 MEQ TABLET.ER (FP) PO ONE (11:45)
[2022-04-27] MEDS ORDERED: MAGNESIUM CL 64 MG TABLET.SA PO ONE (12:00)
[2022-04-27] MEDS ORDERED: SODIUM PHOSPHATE - 15 MM in SODIUM CHLORIDE 250 ML IVPB ONE (12:24)
[2022-04-27] MEDS ORDERED: POTASSIUM PHOSPHATE 30 MM in DEXTROSE 5%-WATER - 500 ML IVPB ONE (13:12)
[2022-04-27] MEDS ORDERED: MAGNESIUM SULF 50% (8.12 MEQ/2 ML-1 GM VIAL) IVPB ONE (13:12)
[2022-04-27] MEDS: POTASSIUM CHLORIDE 10 MEQ in SODIUM CHLORIDE 0.45% 1,000 ML IVPB SCH (17:17)
[2022-04-27] MEDS: ROSUVASTATIN CA 10 MG TABLET PO SCH (21:00)
[2022-04-28] MEDS: VANCOMYCIN 250 MG/5 ML ORAL SOLUTION PO SCH ×4 (00:17→17:12)
[2022-04-28] MEDS: HEPARIN NA (PORCINE) 5,000 UNITS/ML 1ML VIAL SQ SCH ×3 (06:04→21:31)
[2022-04-28] MEDS: LEVOTHYROXINE NA 75 MCG TABLET (FP) PO SCH (06:05)
[2022-04-28] MEDS: INSULIN SLIDING SCALE (NOVOLOG) 1 VIAL SQ SCH ×4 (06:05→21:40)
[2022-04-28] MEDS ORDERED: DEXTROSE 5%-WATER 100 ML IVPB ONE (09:09)
[2022-04-28] MEDS: CEFTRIAXONE 2 GM in DEXTROSE 5%-WATER 2 GM/100 ML BAG IVPB SCH (09:15)
[2022-04-28] MEDS: ALLOPURINOL 100 MG TABLET (FP) PO SCH (09:16)
[2022-04-28] MEDS: QUINAPRIL HCL 20 MG TABLET PO SCH (09:16)
[2022-04-28] MEDS: LACTOBACILLUS ACIDOPHILUS 1 TABLET PO SCH (09:16)
[2022-04-28] MEDS: DIVALPROEX SODIUM 250 MG TABLET E.C. PO SCH ×2 (09:16→21:32)
[2022-04-28 10:01] LABS: BASO % 0.5 % (0-2.0); EOS % 2.9 % (0-4.5); HEMATOCRIT 27.2 % (32.4-45.2); LYMPH % 25.1 % (8-40); MCH 32.3 pg (25.7-33.7); MCHC 33.3 g/dl (32.0-36.0); MEAN CELL VOLUME 97.2 fl (80-96); MEAN PLT VOLUME 7.9 fl (7.5-11.1); MONO % 7.9 % (3.8-10.2); NEUT % 63.6 % (42.8-82.8); PLATELET COUNT 229 10^3/uL (134-434); RDW 16.7 % (11.6-15.6); WHITE BLOOD COUNT 5.7 K/mm3 (4.0-10.0)
[2022-04-28 10:23] LABS: ALBUMIN 2.3 g/dl (3.4-5.0); BLOOD UREA NITROGEN 25.7 mg/dL (7-18); CALCIUM 7.7 mg/dL (8.5-10.1); MAGNESIUM 1.9 mg/dL (1.8-2.4)
[2022-04-28 10:25] LABS: PHOSPHOROUS 2.8 mg/dL (2.5-4.9)
[2022-04-28 10:26] LABS: BILIRUBIN,TOTAL 0.2 mg/dL (0.2-1); CREATININE 1.4 mg/dL (0.55-1.3); TOT PROT 5.2 g/dl (6.4-8.2)
[2022-04-28] MEDS: PANTOPRAZOLE 40 MG TABLET PO SCH (14:25)
[2022-04-28] MEDS: POTASSIUM CHLORIDE 10 MEQ in SODIUM CHLORIDE 0.45% 1,000 ML IVPB SCH (17:14)
[2022-04-28] MEDS ORDERED: INSULIN (NOVOLOG) ASPART 100 UNITS/ML 10ML VIAL ONE (21:13)
[2022-04-28] MEDS: ROSUVASTATIN CA 10 MG TABLET PO SCH (21:32)
[2022-04-29] MEDS: VANCOMYCIN 250 MG/5 ML ORAL SOLUTION PO SCH ×2 (00:09→06:28)
[2022-04-29] MEDS: HEPARIN NA (PORCINE) 5,000 UNITS/ML 1ML VIAL SQ SCH ×3 (06:28→23:14)
[2022-04-29] MEDS: INSULIN SLIDING SCALE (NOVOLOG) 1 VIAL SQ SCH ×4 (06:32→23:15)
[2022-04-29] MEDS: LEVOTHYROXINE NA 75 MCG TABLET (FP) PO SCH (06:34)
[2022-04-29] MEDS: POTASSIUM CHLORIDE 10 MEQ in SODIUM CHLORIDE 0.45% 1,000 ML IVPB SCH ×2 (06:38→17:52)
[2022-04-29] MEDS: PANTOPRAZOLE 40 MG TABLET PO SCH (10:30)
[2022-04-29] MEDS: ALLOPURINOL 100 MG TABLET (FP) PO SCH (10:30)
[2022-04-29] MEDS: LACTOBACILLUS ACIDOPHILUS 1 TABLET PO SCH (10:30)
[2022-04-29] MEDS: DIVALPROEX SODIUM 250 MG TABLET E.C. PO SCH ×2 (10:32→23:14)
[2022-04-29] MEDS: CEFTRIAXONE 2 GM in DEXTROSE 5%-WATER 2 GM/100 ML BAG IVPB SCH (10:32)
[2022-04-29] MEDS: QUINAPRIL HCL 20 MG TABLET PO SCH (10:33)
[2022-04-29 14:00] LABS: HEMATOCRIT 27.3 % (32.4-45.2); HEMOGLOBIN 9.2 GM/dL (10.7-15.3); MCH 32.9 pg (25.7-33.7); MCHC 33.6 g/dl (32.0-36.0); MEAN CELL VOLUME 97.9 fl (80-96); MEAN PLT VOLUME 8.1 fl (7.5-11.1); PLATELET COUNT 240 10^3/uL (134-434); RBC 2.79 M/mm3 (3.60-5.2); RDW 16.5 % (11.6-15.6); WHITE BLOOD COUNT 5.7 K/mm3 (4.0-10.0)
[2022-04-29 14:17] LABS: CALCIUM 8.1 mg/dL (8.5-10.1)
[2022-04-29 14:18] LABS: ALBUMIN 2.4 g/dl (3.4-5.0); BLOOD UREA NITROGEN 24.7 mg/dL (7-18); MAGNESIUM 1.7 mg/dL (1.8-2.4)
[2022-04-29 14:21] LABS: CREATININE 1.4 mg/dL (0.55-1.3); PHOSPHOROUS 1.7 mg/dL (2.5-4.9)
[2022-04-29 14:22] LABS: BILIRUBIN,TOTAL 0.2 mg/dL (0.2-1)
[2022-04-29 14:23] LABS: TOT PROT 5.4 g/dl (6.4-8.2)
[2022-04-29 14:58] LABS: ANISOCYTOSIS 0; HELMET CELLS 0; HOWELL-JOLLY BODIES 0; MACROCYTOSIS 0; OVALOCYTE 0; ROULEAU 0; SICKELED CELLS 0; TARGET CELLS 0; TEAR DROP CELLS 0; TOXIC GRANULATION 0
[2022-04-29] MEDS: metroNIDAZOLE 250 MG TABLET PO SCH ×2 (17:53→23:14)
[2022-04-29] MEDS: ROSUVASTATIN CA 10 MG TABLET PO SCH (23:14)
[2022-04-30] MEDS: HEPARIN NA (PORCINE) 5,000 UNITS/ML 1ML VIAL SQ SCH ×2 (06:44→14:08)
[2022-04-30] MEDS: metroNIDAZOLE 250 MG TABLET PO SCH ×2 (06:44→13:19)
[2022-04-30] MEDS: LEVOTHYROXINE NA 75 MCG TABLET (FP) PO SCH (06:44)
[2022-04-30] MEDS: INSULIN SLIDING SCALE (NOVOLOG) 1 VIAL SQ SCH ×4 (06:44→16:48)
[2022-04-30 10:02] VITALS: TEMP 98.3
[2022-04-30] MEDS: QUINAPRIL HCL 20 MG TABLET PO SCH (10:05)
[2022-04-30] MEDS: LACTOBACILLUS ACIDOPHILUS 1 TABLET PO SCH (10:05)
[2022-04-30] MEDS: PANTOPRAZOLE 40 MG TABLET PO SCH (10:05)
[2022-04-30] MEDS: ALLOPURINOL 100 MG TABLET (FP) PO SCH (10:05)
[2022-04-30] MEDS: DIVALPROEX SODIUM 250 MG TABLET E.C. PO SCH (10:06)
[2022-04-30 10:26] LABS: CALCIUM 8.4 mg/dL (8.5-10.1)
[2022-04-30 10:27] LABS: ALBUMIN 2.5 g/dl (3.4-5.0); BLOOD UREA NITROGEN 25.9 mg/dL (7-18)
[2022-04-30 10:30] LABS: CREATININE 1.4 mg/dL (0.55-1.3)
[2022-04-30 10:32] LABS: TOT PROT 5.1 g/dl (6.4-8.2)
[2022-04-30 10:33] LABS: BILIRUBIN,TOTAL 0.4 mg/dL (0.2-1)
[2022-04-30 11:36] LABS: MAGNESIUM 1.6 mg/dL (1.8-2.4)
[2022-04-30 11:40] LABS: PHOSPHOROUS 2.4 mg/dL (2.5-4.9)
[2022-04-30] MEDS ORDERED: MAGNESIUM 2GM/50ML STERILE WATER IVPB IVPB ONE (12:30)
[2022-04-30] MEDS ORDERED: SODIUM PHOSPHATE - 15 MM in DEXTROSE 5%-WATER - 250 ML IVPB ONE (13:00)
[2022-04-30 14:31] VITALS: BP 105/73; PULSE 84
[2022-04-30] MEDS: POTASSIUM CHLORIDE 10 MEQ in SODIUM CHLORIDE 0.45% 1,000 ML IVPB SCH (17:00)
[2022-04-30] MEDS ORDERED: VANCOMYCIN 250 MG/5 ML ORAL SOLUTION PO SCH (18:00)
== END 2022-04-30 19:13 | disposition home health service (06) | DRG 372 ==
LOC: JER 23:32 → JERBED 04-23 03:22 → J6S 04-23 14:30
PROVIDERS: ADMIT Internal Medicine; ATTEND Internal Medicine
DX: A04.72 Enterocolitis due to Clostridium difficile, not specified as recurrent (principal); N17.9 Acute kidney failure, unspecified; K57.32 Diverticulitis of large intestine without perforation or abscess without bleeding; I12.9 Hypertensive chronic kidney disease with stage 1 through stage 4 chronic kidney disease, or unspecified chronic kidney disease; E11.22 Type 2 diabetes mellitus with diabetic chronic kidney disease; N18.9 Chronic kidney disease, unspecified; E03.9 Hypothyroidism, unspecified; E78.5 Hyperlipidemia, unspecified; D64.9 Anemia, unspecified; E11.65 Type 2 diabetes mellitus with hyperglycemia; D63.1 Anemia in chronic kidney disease; M10.9 Gout, unspecified; E83.39 Other disorders of phosphorus metabolism; D50.9 Iron deficiency anemia, unspecified; G40.909 Epilepsy, unspecified, not intractable, without status epilepticus; E83.42 Hypomagnesemia; E87.6 Hypokalemia; N28.1 Cyst of kidney, acquired
CPT/HCPCS: 0241U-QW; 36415; 71045-TC-FY; 74176-TC; 76775-TC; 80048; 80053; 81003; 82010; 82550; 82553; 82570; 82607; 82728; 82746; 82962; 83010; 83540; 83550; 83605; 83615; 83690; 83735; 83970; 84100; 84300; 84484; 84540; 85025; 85045; 85610; 85730; 86140; 87324; 87449; 87493; 93005; 93010; 97116-GP; 97162-GP; 99285-25; C9803-CS; J1644; J1756; U0003; U0005

== ENCOUNTER 2022-06-09 08:25 | Inpatient (IN) | payer OTHER ==
[2022-06-09 09:21] VITALS: BMI 28.3
[2022-06-09 11:50] LABS: BASO % 0.3 % (0-2.0); EOS % 0.4 % (0-4.5); HEMATOCRIT 31.9 % (32.4-45.2); HEMOGLOBIN 10.5 GM/dL (10.7-15.3); LYMPH % 10.4 % (8-40); MCH 32.8 pg (25.7-33.7); MEAN CELL VOLUME 99.4 fl (80-96); MEAN PLT VOLUME 8.5 fl (7.5-11.1); MONO % 7.6 % (3.8-10.2); NEUT % 81.3 % (42.8-82.8); PLATELET COUNT 210 10^3/uL (134-434); RBC 3.21 M/mm3 (3.60-5.2); RDW 16.1 % (11.6-15.6); WHITE BLOOD COUNT 7.9 K/mm3 (4.0-10.0)
[2022-06-09 12:07] LABS: ALBUMIN 3.2 g/dl (3.4-5.0); BLOOD UREA NITROGEN 42.5 mg/dL (7-18); CALCIUM 9.1 mg/dL (8.5-10.1)
[2022-06-09 12:10] LABS: BILIRUBIN,TOTAL 0.3 mg/dL (0.2-1); CREATININE 1.9 mg/dL (0.55-1.3); TOT PROT 6.7 g/dl (6.4-8.2)
[2022-06-09] MEDS ORDERED: CEFTRIAXONE 2,000 MG in DEXTROSE 5%-WATER - 50 ML IVPB ONE (14:45)
[2022-06-09] MEDS ORDERED: CEFTRIAXONE 1 GM/50 ML BAG ONE (15:04)
[2022-06-09] MEDS: SODIUM CHLORIDE 1,000 ML IV SCH (19:39)
[2022-06-09] MEDS ORDERED: HEPARIN NA (PORCINE) 5,000 UNITS/ML 1ML VIAL ONE (22:46)
[2022-06-09] MEDS: ROSUVASTATIN CA 10 MG TABLET PO SCH (22:51)
[2022-06-09] MEDS: HEPARIN NA (PORCINE) 5,000 UNITS/ML 1ML VIAL SQ SCH (22:51)
[2022-06-09] MEDS: DIVALPROEX SODIUM 250 MG TABLET E.C. PO SCH (22:51)
[2022-06-10] MEDS: LEVOTHYROXINE NA 75 MCG TABLET (FP) PO SCH (06:14)
[2022-06-10] MEDS: HEPARIN NA (PORCINE) 5,000 UNITS/ML 1ML VIAL SQ SCH ×3 (06:14→21:28)
[2022-06-10] MEDS ORDERED: LEVOTHYROXINE NA 75 MCG TABLET (FP) PO SCH (07:00)
[2022-06-10] MEDS: SODIUM CHLORIDE 1,000 ML IV SCH ×2 (07:07→17:07)
[2022-06-10] MEDS ORDERED: cefTRIAXone SODIUM 1 GM VIAL ONE (09:11)
[2022-06-10] MEDS ORDERED: DEXTROSE 5%-WATER - 50 ML IVPB ONE ×3 (09:11→17:01)
[2022-06-10] MEDS: DIVALPROEX SODIUM 250 MG TABLET E.C. PO SCH ×2 (09:15→21:24)
[2022-06-10] MEDS: ALLOPURINOL 100 MG TABLET (FP) PO SCH (09:15)
[2022-06-10] MEDS: FAMOTIDINE 10 MG TABLET PO SCH (09:15)
[2022-06-10 09:36] LABS: HEMATOCRIT 29.6 % (32.4-45.2); HEMOGLOBIN 9.8 GM/dL (10.7-15.3); MCH 32.7 pg (25.7-33.7); MCHC 33.1 g/dl (32.0-36.0); MEAN CELL VOLUME 98.9 fl (80-96); MEAN PLT VOLUME 8.3 fl (7.5-11.1); PLATELET COUNT 210 10^3/uL (134-434); RBC 2.99 M/mm3 (3.60-5.2); RDW 15.9 % (11.6-15.6); WHITE BLOOD COUNT 6.3 K/mm3 (4.0-10.0)
[2022-06-10] MEDS ORDERED: PATIENT'S OWN MEDICATION (NON-FORMULARY) (Mirabegron [Myrbetriq] 50 MG Tab.Er.24h) PO SCH (10:00)
[2022-06-10] MEDS ORDERED: PATIENT'S OWN MEDICATION (NON-FORMULARY) (Patiromer Calcium Sorbitex [Veltassa] 8.4 GM Pow PO SCH (10:00)
[2022-06-10] MEDS ORDERED: CEFTRIAXONE 1 GM in DEXTROSE 5%-WATER - 50 ML IVPB SCH (10:00)
[2022-06-10 10:02] LABS: CALCIUM 8.8 mg/dL (8.5-10.1)
[2022-06-10 10:03] LABS: ALBUMIN 2.7 g/dl (3.4-5.0)
[2022-06-10 10:04] LABS: MAGNESIUM 1.8 mg/dL (1.8-2.4)
[2022-06-10 10:06] LABS: BILIRUBIN,TOTAL 0.2 mg/dL (0.2-1); CREATININE 1.4 mg/dL (0.55-1.3); PHOSPHOROUS 2.5 mg/dL (2.5-4.9)
[2022-06-10 10:08] LABS: TOT PROT 5.9 g/dl (6.4-8.2)
[2022-06-10] MEDS ORDERED: PIPERACILLIN/TAZOB 2.25 GM 2.25 GM in DEXTROSE 5%-WATER - 50 ML IVPB SCH (13:00)
[2022-06-10] MEDS ORDERED: PIPERACILLIN/TAZOBACTAM 2.25 GM VIAL IVPB ONE (14:34)
[2022-06-10] MEDS: PIPERACILLIN/TAZOB 3.375 GM 3.375 GM in DEXTROSE 5%-WATER - 50 ML IVPB SCH (17:01)
[2022-06-10] MEDS ORDERED: PIPERACILLIN/TAZOBACTAM 3.375 GM VIAL IVPB ONE (17:01)
[2022-06-10] MEDS: ROSUVASTATIN CA 10 MG TABLET PO SCH (21:24)
[2022-06-10] MEDS ORDERED: MAG HYDROX/AL HYDROX/SIMETH 30 ML UNIT-DOSE CUP PO ONE (23:39)
[2022-06-11] MEDS ORDERED: DEXTROSE 5%-WATER - 50 ML IVPB ONE ×3 (00:53→16:41)
[2022-06-11] MEDS ORDERED: PIPERACILLIN/TAZOBACTAM 3.375 GM VIAL IVPB ONE ×3 (00:53→16:41)
[2022-06-11] MEDS: PIPERACILLIN/TAZOB 3.375 GM 3.375 GM in DEXTROSE 5%-WATER - 50 ML IVPB SCH ×3 (01:22→18:36)
[2022-06-11] MEDS: LEVOTHYROXINE NA 75 MCG TABLET (FP) PO SCH (06:01)
[2022-06-11] MEDS: HEPARIN NA (PORCINE) 5,000 UNITS/ML 1ML VIAL SQ SCH ×3 (06:01→21:05)
[2022-06-11 08:51] LABS: RBC 2.69 M/mm3 (3.60-5.2); WHITE BLOOD COUNT 5.7 K/mm3 (4.0-10.0)
[2022-06-11 08:52] LABS: BASO % 0.7 % (0-2.0); EOS % 4.3 % (0-4.5); HEMATOCRIT 26.6 % (32.4-45.2); LYMPH % 21.8 % (8-40); MCH 33.3 pg (25.7-33.7); MCHC 33.7 g/dl (32.0-36.0); MEAN CELL VOLUME 98.9 fl (80-96); MEAN PLT VOLUME 8.5 fl (7.5-11.1); MONO % 8.5 % (3.8-10.2); NEUT % 64.7 % (42.8-82.8); PLATELET COUNT 226 10^3/uL (134-434); RDW 15.7 % (11.6-15.6)
[2022-06-11] MEDS: ALLOPURINOL 100 MG TABLET (FP) PO SCH (09:06)
[2022-06-11] MEDS: DIVALPROEX SODIUM 250 MG TABLET E.C. PO SCH ×2 (09:06→21:05)
[2022-06-11] MEDS: FAMOTIDINE 10 MG TABLET PO SCH (09:06)
[2022-06-11 09:41] LABS: ALBUMIN 2.4 g/dl (3.4-5.0); BLOOD UREA NITROGEN 20.8 mg/dL (7-18); MAGNESIUM 1.7 mg/dL (1.8-2.4)
[2022-06-11 09:43] LABS: CREATININE 1.4 mg/dL (0.55-1.3)
[2022-06-11 09:44] LABS: PHOSPHOROUS 2.2 mg/dL (2.5-4.9)
[2022-06-11 09:46] LABS: BILIRUBIN,TOTAL 0.2 mg/dL (0.2-1); TOT PROT 5.3 g/dl (6.4-8.2)
[2022-06-11] MEDS: LACTOBACILLUS ACIDOPHILUS 1 TABLET PO SCH (10:45)
[2022-06-11] MEDS ORDERED: POTASSIUM PHOSPHATE 30 MM in SODIUM CHLORIDE 500 ML IVPB ONE (12:57)
[2022-06-11] MEDS ORDERED: MAGNESIUM OXIDE 400 MG TABLET (FP) PO ONE (12:58)
[2022-06-11] MEDS: SODIUM CHLORIDE 1,000 ML IV SCH (21:05)
[2022-06-11] MEDS: ROSUVASTATIN CA 10 MG TABLET PO SCH (21:05)
[2022-06-12] MEDS ORDERED: PIPERACILLIN/TAZOBACTAM 3.375 GM VIAL IVPB ONE ×3 (00:21→21:00)
[2022-06-12] MEDS ORDERED: DEXTROSE 5%-WATER - 50 ML IVPB ONE ×3 (00:21→21:00)
[2022-06-12] MEDS: PIPERACILLIN/TAZOB 3.375 GM 3.375 GM in DEXTROSE 5%-WATER - 50 ML IVPB SCH ×3 (01:57→21:07)
[2022-06-12] MEDS: HEPARIN NA (PORCINE) 5,000 UNITS/ML 1ML VIAL SQ SCH ×3 (06:20→21:23)
[2022-06-12] MEDS: LEVOTHYROXINE NA 75 MCG TABLET (FP) PO SCH (06:21)
[2022-06-12 09:16] LABS: BASO % 0.7 % (0-2.0); EOS % 4.5 % (0-4.5); HEMATOCRIT 27.9 % (32.4-45.2); HEMOGLOBIN 9.4 GM/dL (10.7-15.3); LYMPH % 23.6 % (8-40); MCH 32.8 pg (25.7-33.7); MCHC 33.5 g/dl (32.0-36.0); MEAN CELL VOLUME 97.8 fl (80-96); MEAN PLT VOLUME 8.2 fl (7.5-11.1); MONO % 9.3 % (3.8-10.2); NEUT % 61.9 % (42.8-82.8); PLATELET COUNT 232 10^3/uL (134-434); RBC 2.85 M/mm3 (3.60-5.2); RDW 16.3 % (11.6-15.6); WHITE BLOOD COUNT 5.7 K/mm3 (4.0-10.0)
[2022-06-12 09:47] LABS: ALBUMIN 2.5 g/dl (3.4-5.0); BILIRUBIN,TOTAL 0.1 mg/dL (0.2-1); BLOOD UREA NITROGEN 14.3 mg/dL (7-18); CALCIUM 8.1 mg/dL (8.5-10.1); CREATININE 1.3 mg/dL (0.55-1.3); MAGNESIUM 1.6 mg/dL (1.8-2.4); PHOSPHOROUS 2.4 mg/dL (2.5-4.9); TOT PROT 5.4 g/dl (6.4-8.2)
[2022-06-12] MEDS: DIVALPROEX SODIUM 250 MG TABLET E.C. PO SCH ×2 (09:50→21:23)
[2022-06-12] MEDS: FAMOTIDINE 10 MG TABLET PO SCH (09:50)
[2022-06-12] MEDS: ALLOPURINOL 100 MG TABLET (FP) PO SCH (09:50)
[2022-06-12] MEDS: LACTOBACILLUS ACIDOPHILUS 1 TABLET PO SCH (09:51)
[2022-06-12] MEDS ORDERED: POTASSIUM PHOSPHATE 30 MM in SODIUM CHLORIDE 500 ML IVPB ONE (09:54)
[2022-06-12] MEDS ORDERED: MAGNESIUM SULF 50% (8.12 MEQ/2 ML-1 GM VIAL) IVPB ONE (09:55)
[2022-06-12] MEDS ORDERED: POTASSIUM CHLORIDE TABS 20 MEQ TABLET.ER (FP) PO ONE ×2 (09:58→13:00)
[2022-06-12] MEDS: SODIUM CHLORIDE 1,000 ML IV SCH ×2 (19:30→20:00)
[2022-06-12] MEDS: ROSUVASTATIN CA 10 MG TABLET PO SCH (21:23)
[2022-06-13] MEDS ORDERED: PIPERACILLIN/TAZOBACTAM 3.375 GM VIAL IVPB ONE ×3 (02:45→17:02)
[2022-06-13] MEDS ORDERED: DEXTROSE 5%-WATER - 50 ML IVPB ONE ×3 (02:45→17:02)
[2022-06-13] MEDS: PIPERACILLIN/TAZOB 3.375 GM 3.375 GM in DEXTROSE 5%-WATER - 50 ML IVPB SCH ×3 (03:57→17:04)
[2022-06-13] MEDS: HEPARIN NA (PORCINE) 5,000 UNITS/ML 1ML VIAL SQ SCH ×3 (06:25→21:16)
[2022-06-13] MEDS: LEVOTHYROXINE NA 75 MCG TABLET (FP) PO SCH (06:28)
[2022-06-13] MEDS ORDERED: POTASSIUM CHLORIDE ORAL LIQUID 20 MEQ/15 ML PO ONE (08:56)
[2022-06-13] MEDS: POTASSIUM PHOSPHATE 30 MM in SODIUM CHLORIDE 500 ML IVPB ONE ×2 (10:21→11:25)
[2022-06-13] MEDS: LACTOBACILLUS ACIDOPHILUS 1 TABLET PO SCH (11:17)
[2022-06-13] MEDS: ALLOPURINOL 100 MG TABLET (FP) PO SCH (11:17)
[2022-06-13] MEDS: DIVALPROEX SODIUM 250 MG TABLET E.C. PO SCH ×2 (11:18→21:16)
[2022-06-13] MEDS: FAMOTIDINE 10 MG TABLET PO SCH (11:19)
[2022-06-13 14:24] LABS: BASO % 0.5 % (0-2.0); EOS % 4.7 % (0-4.5); HEMATOCRIT 29.8 % (32.4-45.2); HEMOGLOBIN 9.9 GM/dL (10.7-15.3); LYMPH % 22.2 % (8-40); MCH 32.9 pg (25.7-33.7); MCHC 33.2 g/dl (32.0-36.0); MEAN PLT VOLUME 7.8 fl (7.5-11.1); NEUT % 64.6 % (42.8-82.8); PLATELET COUNT 263 10^3/uL (134-434); RBC 3.01 M/mm3 (3.60-5.2); RDW 16.2 % (11.6-15.6); WHITE BLOOD COUNT 5.2 K/mm3 (4.0-10.0)
[2022-06-13 14:43] LABS: ALBUMIN 2.5 g/dl (3.4-5.0); BLOOD UREA NITROGEN 15.2 mg/dL (7-18); CALCIUM 8.3 mg/dL (8.5-10.1)
[2022-06-13 14:46] LABS: CREATININE 1.3 mg/dL (0.55-1.3); PHOSPHOROUS 2.9 mg/dL (2.5-4.9)
[2022-06-13 14:48] LABS: BILIRUBIN,TOTAL 0.1 mg/dL (0.2-1); TOT PROT 5.7 g/dl (6.4-8.2)
[2022-06-13] MEDS: MAGNESIUM 2GM/50ML STERILE WATER IVPB IVPB ONE ×2 (18:39→18:57)
[2022-06-13] MEDS: ROSUVASTATIN CA 10 MG TABLET PO SCH (21:16)
[2022-06-13] MEDS ORDERED: ACETAMINOPHEN 1000 MG/100 ML BAG IVPB ONE (21:49)
[2022-06-14] MEDS ORDERED: PIPERACILLIN/TAZOBACTAM 3.375 GM VIAL IVPB ONE ×2 (01:20→08:17)
[2022-06-14] MEDS ORDERED: DEXTROSE 5%-WATER - 50 ML IVPB ONE ×2 (01:20→08:17)
[2022-06-14] MEDS: SODIUM CHLORIDE 1,000 ML IV SCH ×4 (01:24→22:40)
[2022-06-14] MEDS: PIPERACILLIN/TAZOB 3.375 GM 3.375 GM in DEXTROSE 5%-WATER - 50 ML IVPB SCH ×2 (02:24→09:07)
[2022-06-14] MEDS: HEPARIN NA (PORCINE) 5,000 UNITS/ML 1ML VIAL SQ SCH ×3 (06:09→21:04)
[2022-06-14] MEDS: LEVOTHYROXINE NA 75 MCG TABLET (FP) PO SCH (06:09)
[2022-06-14] MEDS: DIVALPROEX SODIUM 250 MG TABLET E.C. PO SCH ×2 (09:06→21:04)
[2022-06-14] MEDS: LACTOBACILLUS ACIDOPHILUS 1 TABLET PO SCH (09:06)
[2022-06-14] MEDS: ALLOPURINOL 100 MG TABLET (FP) PO SCH (09:06)
[2022-06-14] MEDS: FAMOTIDINE 10 MG TABLET PO SCH (09:06)
[2022-06-14] MEDS: AMOX TR/POT CLAV 875MG/125MG TABLETS (FP) PO SCH (17:21)
[2022-06-14] MEDS: ROSUVASTATIN CA 10 MG TABLET PO SCH (21:04)
[2022-06-14] MEDS: metroNIDAZOLE 500 MG TABLET PO SCH (21:12)
[2022-06-15] MEDS: metroNIDAZOLE 500 MG TABLET PO SCH ×2 (05:25→14:12)
[2022-06-15] MEDS: HEPARIN NA (PORCINE) 5,000 UNITS/ML 1ML VIAL SQ SCH ×2 (05:26→14:11)
[2022-06-15] MEDS: LEVOTHYROXINE NA 75 MCG TABLET (FP) PO SCH (06:03)
[2022-06-15] MEDS: AMOX TR/POT CLAV 875MG/125MG TABLETS (FP) PO SCH (09:00)
[2022-06-15] MEDS: FAMOTIDINE 10 MG TABLET PO SCH (10:28)
[2022-06-15] MEDS: LACTOBACILLUS ACIDOPHILUS 1 TABLET PO SCH (10:28)
[2022-06-15] MEDS: DIVALPROEX SODIUM 250 MG TABLET E.C. PO SCH (10:28)
[2022-06-15] MEDS: ALLOPURINOL 100 MG TABLET (FP) PO SCH (10:28)
[2022-06-15 14:02] VITALS: BP 127/60; PULSE 81; TEMP 98.5
== END 2022-06-15 18:28 | disposition home or self-care (01) | DRG 392 ==
LOC: JER 08:25 → JERBED 15:03 → J4S 06-10 01:52
PROVIDERS: ADMIT Internal Medicine; ATTEND Internal Medicine
DX: K57.32 Diverticulitis of large intestine without perforation or abscess without bleeding (principal); N17.9 Acute kidney failure, unspecified; N18.4 Chronic kidney disease, stage 4 (severe); E03.9 Hypothyroidism, unspecified; I12.9 Hypertensive chronic kidney disease with stage 1 through stage 4 chronic kidney disease, or unspecified chronic kidney disease; D64.9 Anemia, unspecified; E86.0 Dehydration; Z85.42 Personal history of malignant neoplasm of other parts of uterus; Z86.19 Personal history of other infectious and parasitic diseases
CPT/HCPCS: 36415; 71045-TC-FY; 74176-TC; 80048; 80053; 82378; 82607; 82728; 83540; 83550; 83735; 84100; 84443; 84484; 85025; 85027; 86140; 87045; 87046; 87205; 87324; 87449; 93005; 93010; 97116-GP; 97161-GP; 99285-25; C9803-CS; J1644; U0003; U0005